=== PATIENT | male | born 1955 | race Caucasian/White ===

== ENCOUNTER 2019-03-19 11:30 | Observation (INO) | payer BC ==
[2019-03-19] MEDS ORDERED: DEXAMETHASONE 10 MG/ML VIAL ONE (12:35)
[2019-03-19] MEDS ORDERED: KETOROLAC 30 MG/ML INJ ONE (12:36)
[2019-03-19] MEDS ORDERED: MORPHINE 4 MG/ML SYR ONE (12:36)
[2019-03-19] MEDS ORDERED: DIAZEPAM 5 MG TABLET ONE (12:36)
[2019-03-19] MEDS ORDERED: ONDANSETRON 4 MG/2 ML VIAL ONE (12:37)
[2019-03-19 12:45] LABS: Protime INR 1.22
[2019-03-19 12:46] LABS: Absolute Lymphocytes (CBC) 0.8 K/uL (0.7-4.9); Absolute Monocytes 0.9 K/uL (0.1-1.3); Eosinophils % 1.7 % (0-4.4); Hematocrit 43.7 % (39.6-49.0); Lymphocytes % 6.7 % (15.3-44.8); Monocytes % 7.1 % (3.3-12.3); RBC Red Blood Cell Count 4.93 M/uL (4.33-5.43)
--- NOTE | 2019-03-19 12:47 | RAD REPORT ---
EXAM DESCRIPTION: CT - Spine Lumbar Wo Con - 03/19/2019 12:29 pm CLINICAL HISTORY: Back pain COMPARISON: None. TECHNIQUE: Thin section axial imaging of the lumbar spine was performed. Sagittal and coronal recon struction images were generated and reviewed. All CT scans are performed using dose optimization technique as appropriate and may include automated exposure control or mA/KV adjustment according to patient size. FINDINGS: No acute compression fracture changes seen. There is slight retrolisthesis of L3 relative to L4. No other alignment abnormality seen. Patient has very advanced endplate degenerative changes p rojecting from the anterior and lateral margins of the lumbar vertebrae. There is posterior endplate spurring from the inferior endplate L3. No paraspinal soft tissue mass. L3-4, L4-5 and L5-S1 disc space narrowing present with advanced degenerative disc disease. There are very advanced degenerative changes involving the endplates at the L3-4 disc level. No paraspinal mass component. Sclerotic changes are present in the L3 and L4 bodies near the endplates of the L3-4 disc space. Prominent lower lumbar facet degenerative changes are present. No pars defects. Central canal detail is inherently limited. Details further limited due to large body habitus. ET 10- T12 vertebrae are also imaged on this study. There is slight wedging of the T11 body without evidence for an acute fracture component. Central spinal stenosis is evident at L3-4 from the degenerative disc and endplate changes along with facet degenerative change. No accurate assessment can be made for disc herniation or significant dis c bulge. Aortoiliac calcifications are present without aneurysm. IMPRESSION: Advanced degenerative changes are present spanning L3-S1 the disc levels. Acute compression fracture is not suspected. Advanced endplate degenerative change present at the L3-4 disc level. Discitis/osteomyelitis cannot b e excluded at this level would need correlation clinical findings, history and lab studies. Prominent , active degenerative change is favored over discitis/osteomyelitis. Central canal cannot be assessed for disc herniation for disc bulge due to inherent CT limitations in the central canal along with limitations due to large body habitus.
[2019-03-19 12:48] LABS: ALT/SGPT 12 U/L (12-78); AST/SGOT 13 U/L (15-37); Albumin 2.9 g/dL (3.4-5.0); Alkaline Phosphatase 104 U/L (45-117); BUN Blood Urea Nitrogen 16 mg/dL (7-18); Bicarbonate 28 mmol/L (21-32); Bilirubin Direct 0.1 mg/dL (0-0.2); Bilirubin Total 0.5 mg/dL (0.2-1.0); Glucose Level 121 mg/dL (74-106); Magnesium 2.1 mg/dL (1.8-2.4); NT PRO-BNP 1291 pg/mL (<125); Potassium 3.8 mmol/L (3.5-5.1); Protein, Total 7.2 g/dL (6.4-8.2); Sodium Level 141 mmol/L (136-145); Troponin (Emerg Dept Use Only) < 0.02 ng/mL (0.0-0.045)
--- NOTE | 2019-03-19 13:22 | RAD REPORT ---
EXAM DESCRIPTION: RAD - Chest Single View - 03/19/2019 1:10 pm CLINICAL HISTORY: COUGH Chest pain. COMPARISON: No comparisons FINDINGS: Portable technique limits examination quality. The lungs are mildly emphysematous but clear. The heart is moderately enlarged in size. No displaced fractures.
--- NOTE | 2019-03-19 13:28 | ER ---
Nurse's Notes [facility] Name: Leo Griffin Age: 63 yrs Sex: Male : 1955 Arrival Date: 03/19/2019 Time: 11:32 Bed 3 Private MD: Diagnosis: Sciatica, right side;Low back pain;Obesity, unspecified;Atrial fibrillation and flutter-RVR Presentation: 03/19 11:40 Presenting complaint: EMS states: RLE CHRONIC PAIN. Transition of care: patient was not bp received from another setting of care. Onset of symptoms is unknown. Risk Assessment: Do you want to hurt yourself or someone else? Patient reports no desire to harm self or others. Initial Sepsis Screen: Does the patient meet any 2 criteria? No. Patient's initial sepsis screen is negative. Does the patient have a suspected source of infection? No. Patient's initial sepsis screen is negative. Care prior to arrival: Medication(s) given: FENTANYL 100MCG. 11:40 Method Of Arrival: EMS: [facility], [place] bp 11:40 Acuity: GISELA 3 bp Triage Assessment: 11:42 General: Appears in no apparent distress. uncomfortable, obese, Behavior is bp cooperative, appropriate for age, anxious. Pain: Complains of pain in right leg. EENT: No deficits noted. Neuro: Level of Consciousness is awake, alert, obeys commands, Oriented to person, place, time, situation, Appropriate for age. Cardiovascular: No deficits noted. Respiratory: Airway is patent Respiratory effort is even, unlabored, Respiratory pattern is regular, symmetrical. GI: No signs and/or symptoms were reported involving the gastrointestinal system. : No signs and/or symptoms were reported regarding the genitourinary system. Derm: No deficits noted. Musculoskeletal: Circulation, motion, and sensation intact. Range of motion: limited in right hip and right knee. Historical: - Allergies: 11:42 No Known Allergies; bp - Home Meds: 11:42 carvedilol oral oral [Active]; bp - PMHx: 11:42 Hypertension; bp - Immunization history:: Adult Immunizations unknown. - Social history:: Smoking status: Patient uses tobacco products, unknown amount. - Ebola Screening: : No symptoms or risks identified at this time. - Family history:: not pertinent. Screenin:45 Abuse screen: Denies threats or abuse. Denies injuries from another. Nutritional bp screening: No deficits noted. Tuberculosis screening: No symptoms or risk factors identified. Fall Risk None identified. Assessment: 11:45 General: Appears in no apparent distress. uncomfortable, obese, unkempt, Behavior is bp cooperative, appropriate for age, anxious. Pain: Complains of pain in right leg. Neuro: Level of Consciousness is awake, alert, obeys commands, Oriented to person, place, time, situation, Appropriate for age. Cardiovascular: No deficits noted. Respiratory: Airway is patent Respiratory effort is even, unlabored, Respiratory pattern is regular, symmetrical. GI: No signs and/or symptoms were reported involving the gastrointestinal system. : No signs and/or symptoms were reported regarding the genitourinary system. EENT: No deficits noted. Derm: No deficits noted. Musculoskeletal: Circulation, motion, and sensation intact. Range of motion: limited in right hip and right knee. 12:30 Reassessment: PT RETURNED FROM RADIOLOGY. bp 13:30 Reassessment: PT TO MRI. bp 14:30 Reassessment: PT RETURNED FROM MRI. bp 15:04 Reassessment: U/S AT B/S FOR ECHO. bp Vital Signs: 11:42 BP 140 / 74; Pulse 124; Resp 20; Temp 98; Pulse Ox 96% ; Weight 167.83 kg; Height 6 ft. bp (182.88 cm); 13:05 BP 183 / 133; Pulse 123; Resp 18; Pulse Ox 95% ; bp 13:30 BP 186 / 131; Pulse 123; Resp 20; Pulse Ox 93% on R/A; bp 14:30 BP 147 / 100; Pulse 123; Resp 18; Pulse Ox 92% ; bp 14:45 BP 136 / 98; Pulse 97; Resp 16; Pulse Ox 95% ; bp 15:30 BP 139 / 92; Pulse 91; Resp 28; Pulse Ox 96% on R/A; bp 11:42 Body Mass Index 50.18 (167.83 kg, 182.88 cm) bp ED Course: 11:32 Patient arrived in ED. aa5 11:34 Remberto Pruitt, GRACE is Primary Nurse. bp 11:36 Zachariah Craig MD is Attending Physician. awilda 11:41 Triage completed. bp 11:42 Arm band placed on. bp 11:45 Patient has correct armband on for positive identification. Bed in low position. Call bp light in reach. Side rails up X2. Adult w/ patient. 12:03 EKG done, by biomedical engineering technologist. reviewed by Zachariah Craig MD. dt2 12:30 CT Lumbar Spine Wo Con In Process Unspecified. EDMS 12:30 Inserted saline lock: 20 gauge in right wrist, using aseptic technique. Blood collected.bp 13:11 XRAY Chest (1 view) In Process Unspecified. EDMS 13:25 Chris Putnam MD is Hospitalizing Provider. awilda 14:59 EKG done, by biomedical engineering technologist. reviewed by Zachariah Craig MD Incentive spirometer education at1 Repeat EKG. 15:39 No provider procedures requiring assistance completed. Patient admitted, IV remains in bp place. Administered Medications: 12:30 Drug: morphine 4 mg Route: IVP; Site: right wrist; bp 15:01 Follow up: Response: Pain is decreased bp 12:30 Drug: Zofran 4 mg Route: IVP; Site: right wrist; bp 15:02 Follow up: Response: No adverse reaction bp 12:30 Drug: Decadron - Dexamethasone 10 mg Route: IVP; Site: right wrist; bp 15:02 Follow up: Response: No adverse reaction bp 12:30 Drug: TORadol 30 mg Route: IVP; Site: right wrist; bp 15:03 Follow up: Response: Pain is decreased bp 12:30 Drug: Valium 5 mg Route: PO; bp 15:03 Follow up: Response: No adverse reaction bp 14:30 Drug: Lopressor (metoprolol TARTRATE) 50 mg Route: PO; bp 14:51 Follow up: Response: No adverse reaction bp 14:30 Drug: Pepcid 20 mg Route: IVP; Site: right wrist; bp 14:52 Follow up: Response: No adverse reaction bp 14:30 Drug: Lovenox 100 mg Route: Sub-Q; Site: right lower abdomen; bp 14:51 Follow up: Response: No adverse reaction bp 14:45 Drug: Lopressor 5 mg Route: IVP; Site: right wrist; bp 15:35 Drug: Lopressor 5 mg Route: IVP; Site: right wrist; bp Outcome: 13:27 Decision to Hospitalize by Provider. awilda 15:45 Admitted to Tele accompanied by tech, family with patient, via stretcher, room 428, bp with chart, Report called to ELMA EDWARDS 15:45 Condition: stable 15:45 Instructed on the need for admit. 16:09 Patient left the ED. bp Signatures: Dispatcher [employer] Zachariah Iraheta MD MD cha Calderon, Audri, RN RN aa5 Mehreen Bowman, electronic publishing specialist EKG Tat1 Remberto Pruitt RN RN Haydee Bernabe dt2
--- NOTE | 2019-03-19 13:28 | EDPHYS ---
Physician Documentation [facility] Name: Leo Griffin Age: 63 yrs Sex: Male : 1955 Arrival Date: 03/19/2019 Time: 11:32 Bed 3 Private MD: ED Physician Zachariah Craig HPI: 03/19 11:55 This 63 yrs old Male presents to ER via EMS with complaints of Leg Pain. awilda 11:55 The patient presents with decreased range of motion, pain, that is acute. The awilda complaints affect the lateral aspect of right thigh, lateral aspect of right calf, right hamstring, right calf, medial aspect of right thigh, medial aspect of right calf, right quadriceps and right choi. Context: The problem was sustained at an unknown site. Onset: The symptoms/episode began/occurred yesterday. Modifying factors: The symptoms are alleviated by remaining still, the symptoms are aggravated by movement. Severity of symptoms: At their worst the symptoms were severe, in the emergency department the symptoms have improved, moderately. The patient has experienced similar episodes in the past. Historical: - Allergies: 11:42 No Known Allergies; bp - Home Meds: 11:42 carvedilol oral oral [Active]; bp - PMHx: 11:42 Hypertension; bp - Immunization history:: Adult Immunizations unknown. - Social history:: Smoking status: Patient uses tobacco products, unknown amount. - Ebola Screening: : No symptoms or risks identified at this time. - Family history:: not pertinent. ROS: 11:55 Constitutional: Negative for fever, chills, and weight loss, Eyes: Negative for injury, awilda pain, redness, and discharge, ENT: Negative for injury, pain, and discharge, Neck: Negative for injury, pain, and swelling, Cardiovascular: Negative for chest pain, palpitations, and edema, Respiratory: Negative for shortness of breath, cough, wheezing, and pleuritic chest pain, Abdomen/GI: Negative for abdominal pain, nausea, vomiting, diarrhea, and constipation, : Negative for injury, bleeding, discharge, and swelling, MS/Extremity: Negative for injury and deformity, Skin: Negative for injury, rash, and discoloration, Neuro: Negative for headache, weakness, numbness, tingling, and seizure, Psych: Negative for depression, anxiety, suicide ideation, homicidal ideation, and hallucinations, Allergy/Immunology: Negative for hives, rash, and allergies, Endocrine: Negative for neck swelling, polydipsia, polyuria, polyphagia, and marked weight changes, Hematologic/Lymphatic: Negative for swollen nodes, abnormal bleeding, and unusual bruising. 11:55 Back: Positive for decreased range of motion, pain with movement, radiated pain. Exam: 11:55 Constitutional: This is a well developed, well nourished patient who is awake, alert, awilda and in no acute distress. Head/Face: Normocephalic, atraumatic. Eyes: Pupils equal round and reactive to light, extra-ocular motions intact. Lids and lashes normal. Conjunctiva and sclera are non-icteric and not injected. Cornea within normal limits. Periorbital areas with no swelling, redness, or edema. ENT: Nares patent. No nasal discharge, no septal abnormalities noted. Tympanic membranes are normal and external auditory canals are clear. Oropharynx with no redness, swelling, or masses, exudates, or evidence of obstruction, uvula midline. Mucous membranes moist. Neck: Trachea midline, no thyromegaly or masses palpated, and no cervical lymphadenopathy. Supple, full range of motion without nuchal rigidity, or vertebral point tenderness. No Meningismus. Chest/axilla: Normal chest wall appearance and motion. Nontender with no deformity. No lesions are appreciated. Cardiovascular: Regular rate and rhythm with a normal S1 and S2. No gallops, murmurs, or rubs. Normal PMI, no JVD. No pulse deficits. Respiratory: Lungs have equal breath sounds bilaterally, clear to auscultation and percussion. No rales, rhonchi or wheezes noted. No increased work of breathing, no retractions or nasal flaring. Abdomen/GI: Soft, non-tender, with normal bowel sounds. No distension or tympany. No guarding or rebound. No evidence of tenderness throughout. Male : Normal genitalia with no discharge or lesions. Skin: Warm, dry with normal turgor. Normal color with no rashes, no lesions, and no evidence of cellulitis. Neuro: Awake and alert, GCS 15, oriented to person, place, time, and situation. Cranial nerves II-XII grossly intact. Motor strength 5/5 in all extremities. Sensory grossly intact. Cerebellar exam normal. Normal gait. Psych: Awake, alert, with orientation to person, place and time. Behavior, mood, and affect are within normal limits. 11:55 Back: ROM is painful, normal spinal alignment noted, CVA tenderness, is absent, vertebral tenderness, is not appreciated, muscle spasm, is appreciated in the left low back, left mid back, right mid back and right low back. Vital Signs: 11:42 BP 140 / 74; Pulse 124; Resp 20; Temp 98; Pulse Ox 96% ; Weight 167.83 kg; Height 6 ft. bp (182.88 cm); 13:05 BP 183 / 133; Pulse 123; Resp 18; Pulse Ox 95% ; bp 13:30 BP 186 / 131; Pulse 123; Resp 20; Pulse Ox 93% on R/A; bp 14:30 BP 147 / 100; Pulse 123; Resp 18; Pulse Ox 92% ; bp 14:45 BP 136 / 98; Pulse 97; Resp 16; Pulse Ox 95% ; bp 15:30 BP 139 / 92; Pulse 91; Resp 28; Pulse Ox 96% on R/A; bp 11:42 Body Mass Index 50.18 (167.83 kg, 182.88 cm) bp MDM: 11:36 Patient medically screened. [facility] 11:57 Data reviewed: vital signs, nurses notes, lab test result(s), EKG, radiologic studies, [facility] CT scan, plain films. 03/19 11:54 Order name: Basic Metabolic Panel; Complete Time: 13:21 [facility] 03/19 11:54 Order name: CBC with Diff; Complete Time: 13:21 [facility] 03/19 11:54 Order name: LFT's; Complete Time: 13:21 [facility] 03/19 11:54 Order name: Magnesium; Complete Time: 13:21 [facility] 03/19 11:54 Order name: NT PRO-BNP; Complete Time: 13:21 [facility] 03/19 11:54 Order name: PT-INR; Complete Time: 13:21 [facility] 03/19 11:54 Order name: Troponin (emerg Dept Use Only); Complete Time: 13:21 [facility] 03/19 11:54 Order name: XRAY Chest (1 view) [facility] 03/19 11:54 Order name: CT Lumbar Spine Wo Con; Complete Time: 13:21 [facility] 03/19 11:54 Order name: Urine Culture [facility] 03/19 12:08 Order name: TSH; Complete Time: 13:21 03/19 13:24 Order name: Echo w/ Doppler [facility] 03/19 13:25 Order name: MRI Lumbar Spine wo Con bd 03/19 14:48 Order name: MRI [facility] 03/19 11:54 Order name: EKG; Complete Time: 11:56 [facility] 03/19 11:54 Order name: Cardiac monitoring; Complete Time: 12:18 [facility] 03/19 11:54 Order name: EKG - Nurse/Tech; Complete Time: 12:18 [facility] 03/19 11:54 Order name: IV Saline Lock; Complete Time: 12:18 [facility] 03/19 11:54 Order name: Labs collected and sent; Complete Time: 12:18 [facility] 03/19 13:24 Order name: EKG; Complete Time: 13:25 [facility] 03/19 13:32 Order name: CONS Physician Consult [facility] 03/19 11:54 Order name: O2 Per Protocol; Complete Time: 12:18 [facility] 03/19 11:54 Order name: O2 Sat Monitoring; Complete Time: 11:57 [facility] 03/19 13:24 Order name: EKG - Nurse/Tech; Complete Time: 14:48 [facility] Administered Medications: 12:30 Drug: morphine 4 mg Route: IVP; Site: right wrist; bp 15:01 Follow up: Response: Pain is decreased bp 12:30 Drug: Zofran 4 mg Route: IVP; Site: right wrist; bp 15:02 Follow up: Response: No adverse reaction bp 12:30 Drug: Decadron - Dexamethasone 10 mg Route: IVP; Site: right wrist; bp 15:02 Follow up: Response: No adverse reaction bp 12:30 Drug: TORadol 30 mg Route: IVP; Site: right wrist; bp 15:03 Follow up: Response: Pain is decreased bp 12:30 Drug: Valium 5 mg Route: PO; bp 15:03 Follow up: Response: No adverse reaction bp 14:30 Drug: Lopressor (metoprolol TARTRATE) 50 mg Route: PO; bp 14:51 Follow up: Response: No adverse reaction bp 14:30 Drug: Pepcid 20 mg Route: IVP; Site: right wrist; bp 14:52 Follow up: Response: No adverse reaction bp 14:30 Drug: Lovenox 100 mg Route: Sub-Q; Site: right lower abdomen; bp 14:51 Follow up: Response: No adverse reaction bp 14:45 Drug: Lopressor 5 mg Route: IVP; Site: right wrist; bp 15:35 Drug: Lopressor 5 mg Route: IVP; Site: right wrist; bp Disposition: 03/19/19 13:27 Hospitalization ordered by Chris Putnam for Inpatient Admission. Preliminary diagnosis are Sciatica, right side, Low back pain, Obesity, unspecified, Atrial fibrillation and flutter - RVR. - Bed requested for Telemetry/MedSurg (Inpatient). - Status is Inpatient Admission. bp - Condition is Stable. - Problem is new. - Symptoms have improved. UTI on Admission? No Signatures: Dispatcher [employer] EDQiana Arreola RN RN Zachariah Biswas MD MD cha Peltier, Brian, RN RN bp Corrections: (The following items were deleted from the chart) 15:03 13:27 Hospitalization Ordered by Chris Putnam MD for Inpatient Admission. Preliminary diagnosis is Sciatica, right side; Low back pain; Obesity, unspecified; Atrial fibrillation and flutter - RVR. Bed requested for Telemetry/MedSurg (Inpatient). Status is Inpatient Admission. Condition is Stable. Problem is new. Symptoms have improved. UTI on Admission? No. awilda 16:09 15:03 03/19/2019 13:27 Hospitalization Ordered by Chris Putnam MD for Inpatient bp Admission. Preliminary diagnosis is Sciatica, right side; Low back pain; Obesity, unspecified; Atrial fibrillation and flutter - RVR. Bed requested for Telemetry/MedSurg (Inpatient). Status is Inpatient Admission. Condition is Stable. Problem is new. Symptoms have improved. UTI on Admission? No. kl
[2019-03-19] MEDS ORDERED: ENOXAPARIN 100 MG/ML SYR SQ ONE (14:04)
[2019-03-19] MEDS ORDERED: METOPROLOL TAR 50 MG TAB ONE (14:04)
[2019-03-19] MEDS ORDERED: FAMOTIDINE 20 MG/2 ML VIAL IV ONE (14:05)
[2019-03-19] MEDS ORDERED: METOPROLOL TARTRATE 5 MG/5 ML INJ IV ONE (14:05)
--- NOTE | 2019-03-19 14:48 | RAD REPORT ---
EXAM DESCRIPTION: MRI - Lumbar Spine Wo Antonio- 03/19/2019 2:36 pm CLINICAL HISTORY: PAIN Back pain, radiculopathy. COMPARISON: No comparisons FINDINGS: Vertebral body heights are within normal limits. No aggressive marrow pattern is observed. No fracture is suspected. The conus medullaris terminates at a normal level. No thickening of the cauda equina or clumping of n erve roots seen. L1-2 level: No significant findings. L2-3 level: Minimal posterior disc bulge mild facet and ligamentum flavum hypertrophy. L3-4 level: Asymmetric posterior disc bulge to the right resulting in mild central canal narrowing. M ild facet and ligamentum flavum hypertrophy is seen. Mild to moderate narrowing of both exit foramina is present. L4-5 level: Large central disc herniation is present measuring 10 mm and resulting in significant salvador tral canal stenosis. Mild facet and ligamentum flavum hypertrophy is present. Moderate narrowing of t he left exit foramen is seen. L5-S1 level: No significant findings. IMPRESSION: Large central disc herniation at L4-5 resulting in severe central canal stenosis.
--- NOTE | 2019-03-19 15:14 | EKG ---
Test Date: 2019-03-19 Test Time: 14:59:03 Major Assembler: MARLIN MEASUREMENT RESULTS: Intervals: Rate: 98 WA: QRSD: 110 QT: 364 QTc: 464 [place]: P: WA: QRS: -9 T: 77 INTERPRETIVE STATEMENTS: Atrial flutter with variable AV block Abnormal ECG Compared to ECG 03/19/2019 12:03:53 no significant change from previous ECG Electronically Signed On 03-19-19 15:14:33 CDT by Tommy Norman
--- NOTE | 2019-03-19 15:16 | EKG ---
Test Date: 2019-03-19 Test Time: 12:03:53 Wood Treating Inspector: ZOHAIB MEASUREMENT RESULTS: Intervals: Rate: 110 MN: QRSD: 90 QT: 328 QTc: 443 [place]: P: MN: QRS: -5 T: 41 INTERPRETIVE STATEMENTS: Atrial flutter with variable AV block Nonspecific T wave abnormality Abnormal ECG No previous ECG available for comparison Electronically Signed On 03-19-19 15:15:32 CDT by Tommy Norman
--- NOTE | 2019-03-19 16:08 | ECHO ---
HEIGHT: ft in WEIGHT: lb oz DATE OF STUDY: 03/19/[address]: Zachariah Craig MD 2-DIMENSIONAL: YES M.MODE: YES DOPPLER: YES COLOR FLOW: YES TDS: YES PORTABLE: YES DEFINITY: BUBBLE STUDY: DIAGNOSIS: ATRIAL FIBRILLATION CARDIAC HISTORY: CATHERIZATION: NO SURGERY: NO PROSTHETIC VALVE: NO PACEMAKER: NO MEASUREMENTS (cm) DIASTOLIC (NORMALS) SYSTOLIC (NORMALS) IVSd 0.9 (0.6-1.2) LA Diam 3.2 (1.9-4.0) LVEF 53% LVIDd 3.9 (3.5-5.7) LVIDs 2.8 (2.0-3.5) %FS 27% LVPWd 1.2 (0.6-1.2) Ao Diam 3.3 (2.0-3.7) 2 DIMENSIONAL ASSESSMENT: RIGHT ATRIUM: NORMAL LEFT ATRIUM: NORMAL RIGHT VENTRICLE: NORMAL LEFT VENTRICLE: NORMAL TRICUSPID VALVE: NORMAL MITRAL VALVE: NORMAL PULMONIC VALVE: NORMAL AORTIC VALVE: NORMAL PERICARDIAL EFFUSION: NONE AORTIC ROOT: NORMAL LEFT VENTRICULAR WALL MOTION: NORMAL DOPPLER/COLOR FLOW: MILD MITRAL REGURGITATION AND TRICUSPID REGURGITATION. NORMAL RIGHT VENTRICULAR SYSTOLIC PRESSURE. COMMENTS: NORMAL LEFT VENRICULAR EJECTION FRACTION. ATRIAL FLUTTER WITH VARIABLE AV BLOCK. MILD MITRAL REGURGITATION AND TRICUSPID REGURGITATION. TECHNOLOGIST: DONNY GUERRERO
[2019-03-19] MEDS ORDERED: ONDANSETRON 4 MG/2 ML VIAL IV PRN (16:54)
[2019-03-19] MEDS ORDERED: ACETAMINOPHEN 325 MG TABLET PO PRN (16:54)
[2019-03-19] MEDS: MORPHINE 4 MG/ML SYR IV PRN (17:29)
[2019-03-19 20:47] LABS: Urine Appearance TURBID; Urine Bilirubin NEGATIVE (NEG); Urine Blood 2+ (NEG); Urine Color YELLOW; Urine Glucose NEGATIVE (NEG); Urine Protein 2+ (NEG); Urine pH 7.5 (5.0-7.0)
--- NOTE | 2019-03-19 20:53 | CON ---
Mr. Griffin is 63. He came to the hospital because his right hip hurts a lot. Apparently, it has bee n very painful for him since November of this year. He does not recall any particular injury, but he is unable to work. I am not consulted of course for the hip, but because his EKG shows atrial flutte r with variable AV block. About 5 years ago, the patient had a TIA. He was at [facility]. At that time, no doubt he had EKGs. He was not told he had any arrhythmia problem, then was not put on any blood thinners. There were no procedures done. All of the testing he did apparently was normal . There were no interventions. He does not use tobacco. Alcohol use, moderate. No illegal drugs. His home medications have been not listed. No allergies are reported. Physical Examination: General: He is morbidly obese. HEENT: Normal. Lungs: Clear. Heart: Irregularly irregular. Heart rate in the 90s, otherwise normal. Abdomen: Soft. Extremities: Mild edema. Distal pulses palpable, within normal limits. An echocardiogram has been done. It shows his ejection fraction is normal. There is mild mitral reg urgitation and tricuspid regurgitation. No evidence of pulmonary hypertension. His EKG shows atrial flutter. Recommendations: My recommendation is that we give him medicines to control his rate, anticoagulate him. We can consider a cardioversion after 3 weeks of anticoagulation. His hip pain is most likely due to the lumbar spinal stenosis that is seen on MRI. There is a large central disk herniation at t he L4-L5 level, so he probably is a patient who will be getting back surgery at some point. It shoul d be delayed until his atrial fibrillation is under better control. If we were able to do a transeso phageal echo, we could see if there is an atrial thrombus, and if not, cardioversion sooner, so in th at way a transfer to a tertiary level of care might improve things, but I suspect that just anticoagu lating him for 3 weeks is the best course with cardioverting him then. DANNY/ALBERTO Voice ID: [id number] Report ID: [id number]
[2019-03-19] MEDS ORDERED: METOPROLOL TAR 50 MG TAB PO SCH (21:00)
[2019-03-19] MEDS ORDERED: FAMOTIDINE 20 MG/2 ML VIAL IV SCH (21:00)
[2019-03-19 21:01] LABS: Urine Bacteria >50 /HPF (NONE SEEN); Urine RBC 20-50 /HPF (NONE SEEN)
[2019-03-19 21:02] LABS: Urine Culture Reflex Order NOT NEEDED; Urine Mucus 3+ /HPF (NONE SEEN)
--- NOTE | 2019-03-19 21:32 | P.HP ---
Certification for Inpatient Patient admitted to: Observation With expected LOS: <2 Midnights Practitioner: I am a practitioner with admitting privileges, knowledge of patient current condition, hospital course, and medical plan of care. Services: Services provided to patient in accordance with Admission requirements found in Title 42 Section 412.3 of the Code of Federal Regulations Patient History Date of Service: 03/19/19 Reason for admission: RIGHT LEG PARALYSIS History of Present Illness: MR. CORREA IS MORBIDLY OBESE GENTLEMAN WHO LIVES ALONE AND EATS FAST FOOD DAILY AFTER WORK. HE HAS GAINED ABOUT 80 LBS OF WEIGHT. HE CAME TO OFFICE WITH SEVERE LOWER BACK PAIN AND RADIATION TO LEG. I GAVE HIM STEROID INJECTION AND MRI ORDER . HE WAS TO DO MRI TODAY BUT COULD NOT WALK WITH LEG WEAKNESS.HIS FAMILY BROUGHT HIM TO ER. HE DOES NOT HAVE MUCH PAIN BUT IS NOT ABLE TO WALK. HIS SON AND GRANDSON ARE VISITING. Allergies No Known Allergies Allergy (Verified 03/19/19 16:54) Home Medications: Carvedilol [Coreg] 12.5 mg PO BID 03/19/19 - Past Medical/Surgical History Has patient received pneumonia vaccine in the past: No Diabetic: No -: right leg sciatica -: hypertension -: hyperlipidemia -: mini stroke - Social History Smoking Status: Current every day smoker Alcohol use: No CD- Drugs: No Caffeine use: Yes Place of Residence: Home Review of Systems 10-point ROS is otherwise unremarkable General: Weakness, As per HPI Physical Examination - Vital Signs Temperature: 96.8 F Blood Pressure: 161/100 Pulse: 100 Respirations: 16 Pulse Ox (%): 92 - Physical Exam General: Alert, Mild distress, Obese HEENT: Atraumatic, PERRLA, Mucous membr. moist/pink, EOMI, Sclerae nonicteric Neck: Supple, 2+ carotid pulse no bruit, No LAD, Without JVD or thyroid abnormality Respiratory: Clear to auscultation bilaterally, Normal air movement Cardiovascular: Regular rate/rhythm, Normal S1 S2 Gastrointestinal: Normal bowel sounds, No tenderness Musculoskeletal: No tenderness Integumentary: No rashes Neurological: Abnormal gait (NOT ABLE TO GET UP ON BOTH FEET.), Abnormal strength (RIGHT LOWER LIMB MONOPARESIS. 3/5) Lymphatics: No axilla or inguinal lymphadenopathy - Studies Laboratory Data (last 24 hrs) 03/19/19 12:15: PT 14.3 H, INR 1.22 03/19/19 12:15: WBC 12.0 H, Hgb 14.4, Hct 43.7, Plt Count 270 03/19/19 12:15: Sodium 141, Potassium 3.8, BUN 16, Creatinine 0.81, Glucose 121 H, Magnesium 2.1, Total Bilirubin 0.5, AST 13 L, ALT 12, Alkaline Phosphatase 104 Assessment and Plan - Problems (Diagnosis) (1) Lumbar spinal stenosis Current Visit: Yes Status: Chronic Plan: AND RT LOWER LIMB MONOPARESIS. SEVERE L4-5 STENOSIS FROM DISK AND DJD. I EXPLAINED THAT WE HAVE NO NEUROSURGEON HE NEEDS TO GO TO ONE OUTPATIENT BUT IS NOT ABLE TO WALK AND THERE IS NOT MUCH FAMILY LOCALLY. Qualifiers: Neurogenic claudication status: without neurogenic claudication Qualified Code(s): M48.061 - Spinal stenosis, lumbar region without neurogenic claudication (2) Atrial flutter Current Visit: Yes Status: Acute Plan: METOPROLOL AND LOVENOX. DR. TAYLOR CALLED IN. Qualifiers: Atrial flutter type: typical Qualified Code(s): I48.3 - Typical atrial flutter (3) HTN (hypertension) Current Visit: Yes Status: Chronic Plan: HE HAS QUIT TAKING MEDS. HE IS BACK ON METORPOLOL AND LOSARTAN. Qualifiers: Hypertension type: essential hypertension Qualified Code(s): I10 - Essential (primary) hypertension - Advance Directives Does patient have a Living Will: No Does patient have a Durable POA for Healthcare: No
[2019-03-20] MEDS: DEXAMETHASONE 10 MG/ML VIAL IV SCH ×4 (00:11→17:04)
[2019-03-20] MEDS: MORPHINE 4 MG/ML SYR IV PRN ×4 (02:15→22:27)
[2019-03-20 04:33] LABS: Absolute Lymphocytes (CBC) 0.5 K/uL (0.7-4.9); Absolute Monocytes 0.2 K/uL (0.1-1.3); Absolute Neutrophil 10.5 K/uL (1.8-8.0); Basophils % 0.9 % (0-1.3); Hematocrit 44.7 % (39.6-49.0); Lymphocytes % 4.2 % (15.3-44.8); MPV 9.4 fL (7.6-11.3); Monocytes % 1.9 % (3.3-12.3)
[2019-03-20 04:41] LABS: BUN Blood Urea Nitrogen 19 mg/dL (7-18); Bicarbonate 28 mmol/L (21-32); Glucose Level 107 mg/dL (74-106); Potassium 4.5 mmol/L (3.5-5.1); Sodium Level 140 mmol/L (136-145)
[2019-03-20 05:04] LABS: Blood Morphology Comment NOT SEEN (NOT SEEN); Platelet Estimate ADEQ
[2019-03-20] MEDS: ENOXAPARIN 100 MG/ML SYR SQ SCH ×2 (05:23→17:04)
[2019-03-20] MEDS: METOPROLOL TAR 50 MG TAB PO SCH ×2 (05:23→17:04)
--- NOTE | 2019-03-20 07:07 | RAD REPORT ---
EXAM DESCRIPTION: RAD - Chest Single View - 03/20/2019 6:45 am CLINICAL HISTORY: Chest pain COMPARISON: March 19 TECHNIQUE: AP portable chest image was obtained 0638 hours . FINDINGS: Lungs are clear. Cardiomediastinal silhouette is enlarged due to rotation, large body habi tus and portable technique. Motion degradation is present. No measurable pleural effusion and no pneu mothorax. No acute bony abnormality seen. No acute aortic findings suspected. IMPRESSION: No acute cardiopulmonary process or significant interval change suspected. Cardiomediastinal silhouette assessment is very limited due to above detailed limitations. When diana able by the patient, standard two view chest examination would be helpful.
[2019-03-20] MEDS ORDERED: ASPIRIN EC 81 MG TAB PO SCH (09:00)
[2019-03-20] MEDS ORDERED: LOSARTAN POTASSIUM 50 MG TABLET PO SCH (09:00)
[2019-03-20] MEDS: FAMOTIDINE 20 MG/2 ML VIAL IV SCH ×2 (09:08→20:05)
[2019-03-20] MEDS: cloNIDine HCl 0.1 MG TAB PO PRN ×2 (12:54→15:06)
--- NOTE | 2019-03-20 18:25 | EKG ---
Test Date: 2019-03-20 Test Time: 09:16:44 Supervisor Cabinetmaker: MARLIN MEASUREMENT RESULTS: Intervals: Rate: 104 DC: QRSD: 106 QT: 322 QTc: 423 [place]: P: 262 DC: QRS: -6 T: 86 INTERPRETIVE STATEMENTS: Atrial flutter with variable AV block Nonspecific T wave abnormality Abnormal ECG Compared to ECG 03/19/2019 14:59:03 T-wave abnormality now present Electronically Signed On 03-20-19 18:23:39 CDT by Tino Pratt
--- NOTE | 2019-03-20 18:45 | P.PN ---
Subjective Date of Service: 03/20/19 Chief Complaint: RIGHT LEG PARALYSIS Subjective: No new changes R LEG WEAK, NO CHEST PAIN, NO DYSPNEA. Review of Systems 10-point ROS is otherwise unremarkable Neurological: Weakness, Other (NOT ABLE TO BEAR ANY WEIGHT HE FALLS. ) Physical Examination - Vital Signs Temperature: 98.6 F Blood Pressure: 160/103 Pulse: 105 Respirations: 20 Pulse Ox (%): 94 - Physical Exam General: Alert, Moderate distress, Obese HEENT: Atraumatic, PERRLA, EOMI Neck: Supple, JVD not distended Respiratory: Clear to auscultation bilaterally, Normal air movement Cardiovascular: Regular rate/rhythm, Normal S1 S2 Gastrointestinal: Normal bowel sounds, No tenderness Musculoskeletal: No tenderness Integumentary: No rashes Neurological: Normal speech, Normal tone, Normal affect, Abnormal strength (R LL 3/5 LEFT LL 4/5 WEAKNESS.) Lymphatics: No axilla or inguinal lymphadenopathy - Studies Medications List Reviewed: Yes Assessment And Plan - Current Problems (Diagnosis) (1) Lumbar spinal stenosis Current Visit: Yes Status: Chronic Plan: AND RT LOWER LIMB MONOPARESIS. SEVERE L4-5 STENOSIS FROM DISK AND DJD. I EXPLAINED THAT WE HAVE NO NEUROSURGEON HE NEEDS TO GO TO ONE OUTPATIENT BUT IS NOT ABLE TO WALK AND THERE IS NOT MUCH FAMILY LOCALLY. [facility] HAS ACCEPTED. MEDICALLY CLEARED A FLUTTER IS STABLIZED AND ABHISHEK DONE TO RULE OUT VENTRICULAR CLOTS. WE HAD NO ABHISHEK FACILITY HERE. HE NEEDS [facility]. I TALKED TO [facility] DOCT[facility]. THEY HAVE ACCEPTED TRANSFER BUT THEY HAVE NO BEDS. Qualifiers: Neurogenic claudication status: without neurogenic claudication Qualified Code(s): M48.061 - Spinal stenosis, lumbar region without neurogenic claudication (2) Atrial flutter Current Visit: Yes Status: Acute Plan: METOPROLOL AND LOVENOX. DR. TAYLOR CALLED IN. Qualifiers: Atrial flutter type: typical Qualified Code(s): I48.3 - Typical atrial flutter (3) HTN (hypertension) Current Visit: Yes Status: Chronic Plan: HE HAS QUIT TAKING MEDS. HE IS BACK ON METORPOLOL AND LOSARTAN. Qualifiers: Hypertension type: essential hypertension Qualified Code(s): I10 - Essential (primary) hypertension
[2019-03-20] MEDS ORDERED: METOPROLOL TAR 50 MG TAB PO SCH (19:00)
--- NOTE | 2019-03-20 19:44 | PN ---
Date of Progress Note: 03/20/2019 Mr. Griffin is 63, was admitted on 03/19/[address] Putnam. He was seen by Dr. Norman yesterday for a trial flutter. Echocardiogram was normal. Plan is for beta alona to control the rhythm, anticoagul ants and cardioversion in the next 3 weeks. Today, his main complaint is hip pain, shortness of ric th. He is morbidly obese. He remained in atrial fibrillation at a rate of about 110-130. I will di scuss the case further with Dr. Putnam. LAWSON/ALBERTO Voice ID: [id number] Report ID: [id number]
[2019-03-20] MEDS ORDERED: APIXABAN 5 MG TABLET PO SCH (21:00)
--- NOTE | 2019-03-21 21:42 | P.DS ---
Admission Date: 03/19/19 Discharge Date: 03/21/19 Disposition: TRANSFER TO [facility] Discharge Condition: FAIR Reason for Admission: RIGHT LEG PARALYSIS - Problems (1) Lumbar spinal stenosis Status: Chronic Qualifiers: Neurogenic claudication status: without neurogenic claudication Qualified Code(s): M48.061 - Spinal stenosis, lumbar region without neurogenic claudication (2) Atrial flutter Status: Acute Qualifiers: Atrial flutter type: typical Qualified Code(s): I48.3 - Typical atrial flutter (3) HTN (hypertension) Status: Chronic Qualifiers: Hypertension type: essential hypertension Qualified Code(s): I10 - Essential (primary) hypertension Brief History of Present Illness: MR. CORREA IS MORBIDLY OBESE GENTLEMAN WHO LIVES ALONE AND EATS FAST FOOD DAILY AFTER WORK. HE HAS GAINED ABOUT 80 LBS OF WEIGHT. HE CAME TO OFFICE WITH SEVERE LOWER BACK PAIN AND RADIATION TO LEG. I GAVE HIM STEROID INJECTION AND MRI ORDER . HE WAS TO DO MRI TODAY BUT COULD NOT WALK WITH LEG WEAKNESS.HIS FAMILY BROUGHT HIM TO ER. HE DOES NOT HAVE MUCH PAIN BUT IS NOT ABLE TO WALK. HIS SON AND GRANDSON ARE VISITING. LAST NIGHT HE WAS TAKEN T [facility] FOR SEVERE SPINAL STENOSIS AND ATRIAL FLUTTER. Vital Signs/Physical Exam: Temp Pulse Resp BP Pulse Ox 97.0 F 105 H 20 140/101 H 97 03/20/19 20:00 03/20/19 20:06 03/20/19 20:00 03/20/19 20:06 03/20/19 20:00 Laboratory Data at Discharge: WBC 11.2 K/uL (4.3-10.9) H 03/20/19 03:44 Hgb 14.7 g/dL (13.6-17.9) 03/20/19 03:44 Hct 44.7 % (39.6-49.0) 03/20/19 03:44 Plt Count 279 K/uL (152-406) 03/20/19 03:44 PT 14.3 SECONDS (9.5-12.5) H 03/19/19 12:15 INR 1.22 03/19/19 12:15 Sodium 140 mmol/L (136-145) 03/20/19 03:44 Potassium 4.5 mmol/L (3.5-5.1) 03/20/19 03:44 BUN 19 mg/dL (7-18) H 03/20/19 03:44 Creatinine 0.72 mg/dL (0.55-1.3) 03/20/19 03:44 Glucose 107 mg/dL (74-106) H 03/20/19 03:44 Magnesium 2.1 mg/dL (1.8-2.4) 03/19/19 12:15 Total Bilirubin 0.5 mg/dL (0.2-1.0) 03/19/19 12:15 AST 13 U/L (15-37) L 03/19/19 12:15 ALT 12 U/L (12-78) 03/19/19 12:15 Alkaline Phosphatase 104 U/L (45-117) 03/19/19 12:15 Troponin I < 0.02 ng/mL (0.0-0.045) 03/19/19 20:35 Home Medications: Carvedilol [Coreg] 12.5 mg PO BID 03/19/19
== END 2019-03-20 23:15 | disposition short-term general hospital (02) ==
LOC: ER 11:30 → INTOOBSV 13:29 → ERHOLD 13:29 → 4TH 15:49
PROVIDERS: ADMIT Internal Medicine; ATTEND Internal Medicine
DX: M48.061 Spinal stenosis, lumbar region without neurogenic claudication (principal); G83.11 Monoplegia of lower limb affecting right dominant side; I48.92 Unspecified atrial flutter; I10 Essential (primary) hypertension; E66.01 Morbid (severe) obesity due to excess calories; Z68.42 Body mass index [BMI] 45.0-49.9, adult; E78.5 Hyperlipidemia, unspecified; F17.210 Nicotine dependence, cigarettes, uncomplicated
CPT/HCPCS: 36415; 71045; 72131; 72148; 80048; 80076; 81001; 83735; 83880; 84443; 84484; 85025; 85610; 87077; 87086; 87088; 87186; 93005; 93306; 96372; 96374; 96375; 99285; G0378; J1100; J1650; J2405

== ENCOUNTER 2019-05-10 06:20 | Day surgery (SDC) | payer BC ==
--- NOTE | 2019-05-08 17:08 | RAD REPORT ---
EXAM DESCRIPTION: RAD - Chest Pa And Lat (2 Views) - 05/08/2019 5:03 pm CLINICAL HISTORY: preop Chest pain. COMPARISON: Chest Single View dated 03/20/2019; Chest Single View dated 03/19/2019 TECHNIQUE: PA and lateral views of the chest were obtained. FINDINGS: The lungs are hyperexpanded compatible with COPD. The heart is upper limit of normal in si ze. No fracture or aggressive bony process. IMPRESSION: COPD without acute process identified.
[2019-05-08 17:16] LABS: Absolute Lymphocytes (CBC) 1.3 K/uL (0.7-4.9); Basophils % 1.2 % (0-1.3); Eosinophils % 4.4 % (0-4.4); Hematocrit 42.9 % (39.6-49.0); Lymphocytes % 15.3 % (15.3-44.8); MPV 9.5 fL (7.6-11.3); Monocytes % 9.3 % (3.3-12.3); RBC Red Blood Cell Count 4.81 M/uL (4.33-5.43)
[2019-05-08 17:24] LABS: Protime INR 1.38
[2019-05-08 17:28] LABS: Potassium 3.9 mmol/L (3.5-5.1)
--- OUTSIDE RECORDS SUMMARY | 2019-05-10 06:24 | XMS REPORT ---
:1955 Author Organization [facility] Address [address] [place] [address] Care Team Providers Name Role Phone PERNELL, YAFRANK Mcleod Unavailable Unavailable Problems This patient has no known problems. Allergies, Adverse Reactions, Alerts This patient has no known allergies or adverse reactions. Medications This patient has no known medications. Results Test Description Test Time Test Comments Text Results Atomic Results Result Comments WOUND CULTURE + GRAM STAIN 2019-03-30 13:54:00 Test Item Value Reference Range Comments CULTURE (BEAKER) (test glll=5537) No growth GRAM STAIN RESULT (BEAKER) (test jsal=6288) 1+ WBCs GRAM STAIN RESULT (BEAKER) (test xjwt=52517) 1+ gram positive cocci in pairs POCT-GLUCOSE [id number] 07:17:00 Test Item Value Reference Range Comments POC-GLUCOSE METER (BEAKER) 88 mg/dL 70-110 TESTED AT [address] (test dotp=9076) [facility] [address] POCT-GLUCOSE [id number] 21:10:00 Test Item Value Reference Range Comments POC-GLUCOSE METER (BEAKER) 126 mg/dL 70-110 TESTED AT [address] (test pher=7346) [facility] [address] POCT-GLUCOSE [id number] 17:08:00 Test Item Value Reference Range Comments POC-GLUCOSE METER (BEAKER) 79 mg/dL 70-110 TESTED AT [address] (test tltr=6015) [facility] [address] POCT-GLUCOSE [id number] 11:59:00 Test Item Value Reference Range Comments POC-GLUCOSE METER (BEAKER) 88 mg/dL 70-110 TESTED AT [address] (test wzfo=4722) [facility] [address] POCT-GLUCOSE [id number] 08:38:00 Test Item Value Reference Range Comments POC-GLUCOSE METER (BEAKER) 106 mg/dL 70-110 TESTED AT [address] (test ebal=0263) [facility] [address] POCT-GLUCOSE [id number] 20:54:00 Test Item Value Reference Range Comments POC-GLUCOSE METER (BEAKER) 85 mg/dL 70-110 TESTED AT [address] (test hwwi=6896) [facility] [address] POCT-GLUCOSE [id number] 12:27:00 Test Item Value Reference Range Comments POC-GLUCOSE METER (BEAKER) 81 mg/dL 70-110 TESTED AT [address] (test iatu=0209) [facility] [address] POCT-GLUCOSE [id number] 21:51:00 Test Item Value Reference Range Comments POC-GLUCOSE METER (BEAKER) 111 mg/dL 70-110 TESTED AT [address] (test wcbg=7919) [facility] [address] POCT-GLUCOSE [id number] 17:21:00 Test Item Value Reference Range Comments POC-GLUCOSE METER (BEAKER) 109 mg/dL 70-110 TESTED AT [address] (test fnnp=9630) [facility] [address] POCT-GLUCOSE [id number] 12:07:00 Test Item Value Reference Range Comments POC-GLUCOSE METER (BEAKER) 85 mg/dL 70-110 TESTED AT [address] (test whgc=5854) [facility] [address] POCT-GLUCOSE [id number] 08:24:00 Test Item Value Reference Range Comments POC-GLUCOSE METER (BEAKER) 125 mg/dL 70-110 TESTED AT [address] (test fpbj=5773) [facility] [address] POCT-GLUCOSE [id number] 21:49:00 Test Item Value Reference Range Comments POC-GLUCOSE METER (BEAKER) 84 mg/dL 70-110 TESTED AT [address] (test xrzy=7623) [facility] [address] POCT-GLUCOSE [id number] 18:33:00 Test Item Value Reference Range Comments POC-GLUCOSE METER (BEAKER) 169 mg/dL 70-110 TESTED AT [address] (test ywoj=0775) [facility] [address] POCT-GLUCOSE [id number] 12:06:00 Test Item Value Reference Range Comments POC-GLUCOSE METER (BEAKER) 86 mg/dL 70-110 TESTED AT [address] (test ufnn=3030) [facility] [address] POCT-GLUCOSE [id number] 08:37:00 Test Item Value Reference Range Comments POC-GLUCOSE METER (BEAKER) 122 mg/dL 70-110 TESTED AT [address] (test kign=8889) [facility] [address] POCT-GLUCOSE [id number] 22:12:00 Test Item Value Reference Range Comments POC-GLUCOSE METER (BEAKER) 109 mg/dL 70-110 TESTED AT [address] (test ylyv=0452) [facility] [address] POCT-GLUCOSE [id number] 18:19:00 Test Item Value Reference Range Comments POC-GLUCOSE METER (BEAKER) 81 mg/dL 70-110 TESTED AT [address] (test vzij=0325) [facility] [address] POCT-GLUCOSE [id number] 21:49:00 Test Item Value Reference Range Comments POC-GLUCOSE METER (BEAKER) 90 mg/dL 70-110 TESTED AT [address] (test tlpo=7650) [place] [id number] POCT-GLUCOSE [id number] 17:11:00 Test Item Value Reference Range Comments POC-GLUCOSE METER (BEAKER) 113 mg/dL 70-110 TESTED AT [address] (test mmns=5992) [facility] [address] POCT-GLUCOSE [id number] 13:03:00 Test Item Value Reference Range Comments POC-GLUCOSE METER (BEAKER) 92 mg/dL 70-110 TESTED AT [address] (test vvkc=7965) [place] [id number] POCT-GLUCOSE [id number] 08:27:00 Test Item Value Reference Range Comments POC-GLUCOSE METER (BEAKER) 90 mg/dL 70-110 TESTED AT [address] (test tkxi=8844) [facility] [address] [id number] 05:28:00 Test Item Value Reference Range Comments MAGNESIUM (BEAKER) (test gkcr=034) 1.9 mg/dL 1.6-2.6 BASIC METABOLIC [id number] 05:28:00 Test Item Value Reference Range Comments SODIUM (BEAKER) (test 139 meq/L 136-145 lvim=251) POTASSIUM (BEAKER) (test 4.2 meq/L 3.5-5.1 hqwq=352) CHLORIDE (BEAKER) (test 103 meq/L 98-107 uilz=100) CO2 (BEAKER) (test 27 meq/L 22-29 djbl=712) BLOOD UREA NITROGEN 23 mg/dL 7-21 (BEAKER) (test zfgl=410) CREATININE (BEAKER) (test 0.72 mg/dL 0.57-1.25 fufo=402) GLUCOSE RANDOM (BEAKER) 88 mg/dL 70-105 (test hkep=476) CALCIUM (BEAKER) (test 8.7 mg/dL 8.4-10.2 bwvn=219) EGFR (BEAKER) (test 110 mL/min/1.73 sq m ESTIMATED GFR IS NOT ynye=6593) ACCURATE CREATININE CLEARANCE IN PREDICTING GLOMERULAR FILTRATION RATE. ESTIMATED GFR IS NOT APPLICABLE FOR DIALYSIS PATIENTS. PROTHROMBIN [id number] 05:19:00 Test Item Value Reference Range Comments PROTIME (BEAKER) (test moau=128) 14.6 seconds 11.7-14.7 INR (BEAKER) (test vwyf=284) 1.2 <=5.9 RECOMMENDED COUMADIN/WARFARIN INR THERAPY RANGESSTANDARD DOSE: 2.0 - 3.0 Includes: PROPHYLAXIS forvenous thrombosis, systemic embolization; TREATMENT for venous thrombosis and/or pulmonary embolus.HIGH RISK: Target INR is 2.5-3.5 for patients with mechanical heart valves.CBC (HEMOGRAM ONLY)2019-03-22 05:08:00 Test Item Value Reference Range Comments WHITE BLOOD CELL COUNT (BEAKER) (test dfvn=708) 11.8 K/ L 3.5-10.5 RED BLOOD CELL COUNT (BEAKER) (test wdgz=664) 4.69 M/ L 4.63-6.08 HEMOGLOBIN (BEAKER) (test quph=403) 13.6 GM/DL 13.7-17.5 HEMATOCRIT (BEAKER) (test vodn=825) 43.8 % 40.1-51.0 MEAN CORPUSCULAR VOLUME (BEAKER) (test eqss=070) 93.4 fL 79.0-92.2 MEAN CORPUSCULAR HEMOGLOBIN (BEAKER) (test 29.0 pg 25.7-32.2 rinf=150) MEAN CORPUSCULAR HEMOGLOBIN CONC (BEAKER) (test 31.1 GM/DL 32.3-36.5 pyuu=468) RED CELL DISTRIBUTION WIDTH (BEAKER) (test 15.1 % 11.6-14.4 fdhj=721) PLATELET COUNT (BEAKER) (test pwnm=580) 218 K/CU MM 150-450 MEAN PLATELET VOLUME (BEAKER) (test iute=546) 10.9 fL 9.4-12.4 NUCLEATED RED BLOOD CELLS (BEAKER) (test 0 /100 WBC 0-0 yorz=255) POCT-GLUCOSE [id number] 23:01:00 Test Item Value Reference Range Comments POC-GLUCOSE METER (BEAKER) 81 mg/dL 70-110 TESTED AT [address] (test zzlq=8191) [facility] [address] RAD, CHEST, 1 VIEW, NON [id number] 16:56:00Reason for exam:->pre opShould this be performed at the bedside?->YesFINAL REPORT EXAM: Frontal chest radiograph, 2 images HISTORY PROVIDED: PreopCOMPARISON: None available IMPRESSION:There is pulmonary vascular congestion with bilateral interstitial prominence and mild interstitial edema is not excluded. No pneumothorax or significant pleural fluid. The cardiac silhouette is enlarged. The thoracic aorta is tortuous/ectatic and demonstrates atherosclerotic calcification. No acute osseous abnormality. Signed: Joaquin Sanders [facility] Verified Date/Time: 03/21/2019 16:56:42 Reading Location: [facility] 04: 56 [id number] 16:42:00 Test Item Value Reference Range Comments PARTIAL THROMBOPLASTIN TIME (BEAKER) (test 32.8 seconds 22.5-36.0 tsdp=699) PROTHROMBIN [id number] 16:41:00 Test Item Value Reference Range Comments PROTIME (BEAKER) (test gmiz=887) 15.7 seconds 11.7-14.7 INR (BEAKER) (test qizj=805) 1.3 <=5.9 RECOMMENDED COUMADIN/WARFARIN INR THERAPY RANGESSTANDARD DOSE: 2.0 - 3.0 Includes: PROPHYLAXIS forvenous thrombosis, systemic embolization; TREATMENT for venous thrombosis and/or pulmonary embolus.HIGH RISK: Target INR is 2.5-3.5 for patients with mechanical heart valves.CBC W/PLT COUNT & AUTO [id number] 16:35:00 Test Item Value Reference Range Comments WHITE BLOOD CELL COUNT (BEAKER) (test bsfh=243) 17.6 K/ L 3.5-10.5 RED BLOOD CELL COUNT (BEAKER) (test slpp=882) 4.63 M/ L 4.63-6.08 HEMOGLOBIN (BEAKER) (test pxvr=803) 13.2 GM/DL 13.7-17.5 HEMATOCRIT (BEAKER) (test fctl=286) 42.8 % 40.1-51.0 MEAN CORPUSCULAR VOLUME (BEAKER) (test fktx=223) 92.4 fL 79.0-92.2 MEAN CORPUSCULAR HEMOGLOBIN (BEAKER) (test 28.5 pg 25.7-32.2 suwl=361) MEAN CORPUSCULAR HEMOGLOBIN CONC (BEAKER) (test 30.8 GM/DL 32.3-36.5 tefy=115) RED CELL DISTRIBUTION WIDTH (BEAKER) (test 15.1 % 11.6-14.4 qkpm=513) PLATELET COUNT (BEAKER) (test ysil=072) 278 K/CU MM 150-450 MEAN PLATELET VOLUME (BEAKER) (test ayey=734) 10.7 fL 9.4-12.4 NUCLEATED RED BLOOD CELLS (BEAKER) (test 0 /100 WBC 0-0 bwku=786) NEUTROPHILS RELATIVE PERCENT (BEAKER) (test 83 % qwmk=372) LYMPHOCYTES RELATIVE PERCENT (BEAKER) (test 8 % wchn=446) MONOCYTES RELATIVE PERCENT (BEAKER) (test 8 % ybbc=031) EOSINOPHILS RELATIVE PERCENT (BEAKER) (test 0 % belt=898) BASOPHILS RELATIVE PERCENT (BEAKER) (test 0 % lqmh=421) NEUTROPHILS ABSOLUTE COUNT (BEAKER) (test 14.56 K/ L 1.78-5.38 uhgz=317) LYMPHOCYTES ABSOLUTE COUNT (BEAKER) (test 1.47 K/ L 1.32-3.57 xsxy=020) MONOCYTES ABSOLUTE COUNT (BEAKER) (test 1.43 K/ L 0.30-0.82 aesn=836) EOSINOPHILS ABSOLUTE COUNT (BEAKER) (test 0.04 K/ L 0.04-0.54 garp=764) BASOPHILS ABSOLUTE COUNT (BEAKER) (test 0.06 K/ L 0.01-0.08 jezb=324) IMMATURE GRANULOCYTES-RELATIVE PERCENT (BEAKER) 1 % 0-1 (test jsdx=2188) HEMOGLOBIN [id number] 12:32:00 Test Item Value Reference Range Comments HEMOGLOBIN A1C (BEAKER) (test cwiu=572) 6.7 % 4.3-6.1
--- OUTSIDE RECORDS SUMMARY | 2019-05-10 06:24 | XMS REPORT | Clinical Summary ---
:[address] [facility] Address [address] [place] [address] Care Team Providers Name Role Phone Unavailable Primary Care Provider Unavailable Allergies No Known Allergies Medications Medication Sig Dispensed Refills Start Date End Date Status apixaban (ELIQUIS) 5 Take 5 mg by 0 Active mg Tab tablet mouth 2 (two) times daily. losartan (COZAAR) 100 Take 1 tablet 0 03/29/2019 Active MG tablet (100 mg total) 0 by mouth daily. carvedilol (COREG) 25 Take 1 tablet 0 03/28/2019 Active MG tablet (25 mg total) 0 by mouth 2 (two) times daily. chlorthalidone Take 1 tablet 0 03/29/2019 Active (HYGROTON) 25 MG (25 mg total) 0 tablet by mouth daily. cyclobenzaprine Take 1 tablet 0 03/28/2019 Active (FLEXERIL) 10 MG (10 mg total) tablet by mouth 3 (three) times daily as needed for Muscle spasms. gabapentin Take 1 capsule 0 03/28/2019 Active (NEURONTIN) 300 MG (300 mg total) 0 capsule by mouth 3 (three) times daily. lidocaine (LIDODERM) Place 1 patch 30 patch 0 03/28/2019 Active 5 % patch onto the skin daily Remove & Discard patch within 12 hours or as directed by MD. naproxen (NAPROSYN) Take 1 tablet 0 03/28/2019 Active 500 MG tablet (500 mg total) by mouth 2 (two) times daily with breakfast and dinner. polyethylene glycol Take 17 g by 14 each 0 03/29/2019 Active (GLYCOLAX) 17 gram mouth daily. packet senna-docusate Take 2 tablets 0 03/28/2019 Active (SENOKOT S) 8.6-50 mg by mouth per tablet nightly. metFORMIN Take 1 tablet 0 03/28/2019 Active (GLUCOPHAGE) 500 MG (500 mg total) tablet by mouth 2 (two) times daily with breakfast and dinner. metoprolol Take 100 mg by 0 Discontinued (LOPRESSOR) 100 MG mouth 2 (two) 9 tablet times daily. losartan (COZAAR) 50 Take 50 mg by 0 Discontinued MG tablet mouth daily. 9 HYDROcodone-acetamino Take 1 tablet 0 03/28/2019 phen (NORCO 10-325) by mouth every 9 10-325 mg per tablet 4 (four) hours as needed for up to 30 days. Max Daily Amount: 6 tablets Active Problems Problem Noted Date Atrial flutter 03/21/2019 Lumbar back pain with radiculopathy affecting right lower extremity 03/21/2019 Encounters Date Type Specialty Care Team Description 03/21/2019 - [facility] Internal [facility] Atrial flutter, unspecified type ([facility]); 03/28/2019 Encounter Medicine D Spinal stenosis of lumbar region, unspecified whether neurogenic claudication present; Mohsen, Essential hypertension; MD Vincenzo Morbid obesity (HCC); Xochitl Katz, Preoperative cardiovascular examination; Encounter for pre-operative cardiovascular clearance; Lumbar back pain with radiculopathy affecting right lower extremity; Back abscess; Chronic anticoagulation 03/21/2019 Travel after 05/09/2018 Family History Medical History Relation Name Comments Coronary artery disease Father Diabetes Father Aneurysm Mother COPD Sister Hypertension Sister Relation Name Status Comments Father Mother Sister Alive Sister Alive Social History Tobacco Use Types Packs/Day Years Used Date Current Every Day Smoker Cigarettes 1 Started: 1995 Smokeless Tobacco: Never Used Alcohol Use Drinks/Week oz/Week Comments No Alcohol Habits Answer Date Recorded How often do you have a drink containing alcohol? Never 03/21/2019 How many drinks containing alcohol do you have on a Patient refused 2018 typical day when you are drinking? How often do you have six or more drinks on one Never 03/21/2019 occasion? Sex Assigned at Date Recorded Not on file Job Start Date Occupation Industry Not on file Not on file Not on file Travel History Travel Start Travel End No recent travel history available. Last Filed Vital Signs Vital Sign Reading Time Taken Blood Pressure 144/88 03/28/2019 3:00 PM CDT Pulse 60 03/28/2019 3:00 PM CDT Temperature 35.8 C (96.5 F) 03/28/2019 3:00 PM CDT Respiratory Rate 18 03/28/2019 3:00 PM CDT Oxygen Saturation 97% 03/28/2019 3:00 PM CDT Inhaled Oxygen Concentration - - Weight 176.9 kg (390 lb) 03/21/2019 1:00 AM CDT Height 182.9 cm (6') 03/21/2019 1:00 AM CDT Body Mass Index 52.89 03/21/2019 1:00 AM CDT Plan of Treatment Not on file Procedures Procedure Name Priority Date/Time Associated Comments Diagnosis RHYTHM STRIP - SCAN 03/29/2019 1:40 PM CDT POCT-GLUCOSE METER Routine 03/28/2019 7:13 Results for this AM CDT procedure are in the results section. POCT-GLUCOSE METER Routine 03/27/2019 9:07 Results for this PM CDT procedure are in the results section. POCT-GLUCOSE METER Routine 03/27/2019 5:02 Results for this PM CDT procedure are in the results section. WOUND CULTURE + GRAM KELLEY 03/27/2019 4:56 Results for this STAIN PM CDT procedure are in the results section. POCT-GLUCOSE METER Routine 03/27/2019 11:51 Results for this AM CDT procedure are in the results section. POCT-GLUCOSE METER Routine 03/27/2019 7:26 Results for this AM CDT procedure are in the results section. POCT-GLUCOSE METER Routine 03/26/2019 8:53 Results for this PM CDT procedure are in the results section. POCT-GLUCOSE METER Routine 03/26/2019 12:20 Results for this PM CDT procedure are in the results section. POCT-GLUCOSE METER Routine 03/25/2019 8:53 Results for this PM CDT procedure are in the results section. POCT-GLUCOSE METER Routine 03/25/2019 5:17 Results for this PM CDT procedure are in the results section. POCT-GLUCOSE METER Routine 03/25/2019 12:00 Results for this PM CDT procedure are in the results section. POCT-GLUCOSE METER Routine 03/25/2019 8:22 Results for this AM CDT procedure are in the results section. POCT-GLUCOSE METER Routine 03/24/2019 9:47 Results for this PM CDT procedure are in the results section. POCT-GLUCOSE METER Routine 03/24/2019 6:23 Results for this PM CDT procedure are in the results section. POCT-GLUCOSE METER Routine 03/24/2019 11:54 Results for this AM CDT procedure are in the results section. POCT-GLUCOSE METER Routine 03/24/2019 7:58 Results for this AM CDT procedure are in the results section. POCT-GLUCOSE METER Routine 03/23/2019 9:52 Results for this PM CDT procedure are in the results section. POCT-GLUCOSE METER Routine 03/23/2019 6:03 Results for this PM CDT procedure are in the results section. POCT-GLUCOSE METER Routine 03/22/2019 9:43 Results for this PM CDT procedure are in the results section. POCT-GLUCOSE METER Routine 03/22/2019 5:03 Results for this PM CDT procedure are in the results section. POCT-GLUCOSE METER Routine 03/22/2019 1:00 Results for this PM CDT procedure are in the results section. POCT-GLUCOSE METER Routine 03/22/2019 8:25 Results for this AM CDT procedure are in the results section. PROTHROMBIN TIME/INR Routine 03/22/2019 4:39 Results for this AM CDT procedure are in the results section. CBC (HEMOGRAM ONLY) Routine 03/22/2019 4:39 Results for this AM CDT procedure are in the results section. MAGNESIUM Routine 03/22/2019 4:39 Results for this AM CDT procedure are in the results section. BASIC METABOLIC PANEL Routine 03/22/2019 4:39 Results for this (7) AM CDT procedure are in the results section. POCT-GLUCOSE METER Routine 03/21/2019 9:09 Results for this PM CDT procedure are in the results section. CBC W/PLT COUNT & STAT 03/21/2019 3:55 Results for this AUTO DIFFERENTIAL PM CDT procedure are in the results section. APTT STAT 03/21/2019 3:55 Results for this PM CDT procedure are in the results section. PROTHROMBIN TIME/INR STAT 03/21/2019 3:55 Results for this PM CDT procedure are in the results section. CBC W/PLT COUNT & STAT 03/21/2019 3:55 Results for this AUTO DIFFERENTIAL PM CDT procedure are in the results section. XR CHEST 1 VIEW STAT 03/21/2019 3:52 Results for this PORTABLE/BEDSIDE PM CDT procedure are in the results section. HEMOGLOBIN A1C Routine 03/21/2019 11:56 Results for this AM CDT procedure are in the results section. ECG 12-LEAD Routine 03/21/2019 7:57 Results for this AM CDT procedure are in the results section. after 05/09/2018 Results RHYTHM STRIP - SCAN (03/29/2019 1:40 PM CDT) Narrative Performed At POC-Glucose meter (03/28/2019 7:13 AM CDT)Only the most recent of22 resultswithin the time period is included. POC-Glucose Meter 88Comment: TESTED AT 70 - 110 mg/dL [address] [id number] Specimen Blood Performing Organization Address City/[facility]/[place] Phone Number [address] [address] [phone] CENTER Wound culture + gram stain (03/27/2019 4:56 PM CDT) Result No growth [facility] Gram Stain Result 1+ WBCs [facility] Gram Stain Result 1+ gram positive cocci in [facility] Specimen Abscess Performing Organization Address City/[facility]/[place] Phone Number [address] [address] CENTER Prothrombin time/INR (03/22/2019 4:39 AM CDT)Only the most recent of2 resultswithin the time period is included. Protime 14.6 11.7 - 14.7 seconds [facility] INR 1.2 <=5.9 [facility] Specimen Blood Narrative Performed At RECOMMENDED COUMADIN/WARFARIN INR THERAPY [facility] RANGES STANDARD DOSE: 2.0 - 3.0 Includes: PROPHYLAXIS for venous thrombosis, systemic embolization; TREATMENT for venous thrombosis and/or pulmonary embolus. HIGH RISK: Target INR is 2.5-3.5 for patients with mechanical heart valves. Performing Organization Address City/State/Zipcode Phone Number [address] [address] [place] CBC (Hemogram only) (03/22/2019 4:39 AM CDT) WBC 11.8 (H) 3.5 - 10.5 K/L [facility] RBC 4.69 4.63 - 6.08 M/L [facility] Hemoglobin 13.6 (L) 13.7 - 17.5 GM/DL [facility] Hematocrit 43.8 40.1 - 51.0 % [facility] MCV 93.4 (H) 79.0 - 92.2 fL [facility] MCH 29.0 25.7 - 32.2 pg [facility] MCHC 31.1 (L) 32.3 - 36.5 GM/DL [facility] RDW 15.1 (H) 11.6 - 14.4 % [facility] Platelets 218 150 - 450 K/CU MM [facility] MPV 10.9 9.4 - 12.4 fL [facility] nRBC 0 0 - 0 /100 WBC [facility] Specimen Blood Performing Organization Address City/[facility]/Zipcode Phone Number [address] [address] [phone] CENTER Magnesium (03/22/2019 4:39 AM CDT) Magnesium 1.9 1.6 - 2.6 mg/dL [facility] Specimen Blood Performing Organization Address City/[facility]/Zipcode Phone Number [address] [address] [place] Basic metabolic panel (03/22/2019 4:39 AM CDT) Sodium 139 136 - 145 meq/L [facility] Potassium 4.2 3.5 - 5.1 meq/L [facility] Chloride 103 98 - 107 meq/L [facility] CO2 27 22 - 29 meq/L [facility] BUN 23 (H) 7 - 21 mg/dL [facility] Creatinine 0.72 0.57 - 1.25 mg/dL [facility] Glucose 88 70 - 105 mg/dL [facility] Calcium 8.7 8.4 - 10.2 mg/dL [facility] EGFR 110Comment: ESTIMATED GFR IS mL/min/1.73 sq m [facility] NOT ACCURATE CREATININE [facility] CENTER CLEARANCE IN PREDICTING GLOMERULAR FILTRATION RATE. ESTIMATED GFR IS NOT APPLICABLE FOR DIALYSIS PATIENTS. Specimen Blood Performing Organization Address City/State/Zipcode Phone Number [facility] [address] [place] [address] [phone] [place] CBC with platelet count + automated diff (03/21/2019 3:55 PM CDT) WBC 17.6 (H) 3.5 - 10.5 K/L [facility] RBC 4.63 4.63 - 6.08 M/L [facility] Hemoglobin 13.2 (L) 13.7 - 17.5 GM/DL [facility] Hematocrit 42.8 40.1 - 51.0 % [facility] MCV 92.4 (H) 79.0 - 92.2 fL [facility] MCH 28.5 25.7 - 32.2 pg [facility] MCHC 30.8 (L) 32.3 - 36.5 GM/DL [facility] RDW 15.1 (H) 11.6 - 14.4 % [facility] Platelets 278 150 - 450 K/CU MM [facility] MPV 10.7 9.4 - 12.4 fL [facility] nRBC 0 0 - 0 /100 WBC [facility] % Neutros 83 % [facility] % Lymphs 8 % [facility] % Monos 8 % [facility] % Eos 0 % [facility] % Baso 0 % [facility] # Neutros 14.56 (H) 1.78 - 5.38 K/L [facility] # Lymphs 1.47 1.32 - 3.57 K/L [facility] # Monos 1.43 (H) 0.30 - 0.82 K/L [facility] # Eos 0.04 0.04 - 0.54 K/L [facility] # Baso 0.06 0.01 - 0.08 K/L [facility] Immature 1 0 - 1 % [facility] Granulocytes-[facility] Specimen Blood Performing Organization Address City/State/Zipcode Phone Number [place] [phone] [place] [address] [place] aPTT (03/21/2019 3:55 PM CDT) PTT 32.8 22.5 - 36.0 seconds [facility] Specimen Blood Performing Organization Address City/State/Zipcode Phone Number [address] [address] [place] XR chest 1 view portable / bedside (03/21/2019 3:52 PM CDT) Specimen Narrative Performed At FINAL REPORT GE RIS EXAM: Frontal chest radiograph, 2 images HISTORY PROVIDED: Preop COMPARISON: None available IMPRESSION: There is pulmonary vascular congestion with bilateral interstitial prominence and mild interstitial edema is not excluded. No pneumothorax or significant pleural fluid. The cardiac silhouette is enlarged. The thoracic aorta is tortuous/ectatic and demonstrates atherosclerotic calcification. No acute osseous abnormality. Signed: Joaquin Sanders MD Report Verified Date/Time:03/21/2019 16:56:42 Reading Location: [facility] Procedure Note Interface, External Ris In - 03/21/2019 4:58 PM CDT FINAL REPORT EXAM: Frontal chest radiograph, 2 images HISTORY PROVIDED: Preop COMPARISON: None available IMPRESSION: There is pulmonary vascular congestion with bilateral interstitial prominence and mild interstitial edema is not excluded. No pneumothorax or significant pleural fluid. The cardiac silhouette is enlarged. The thoracic aorta is tortuous/ectatic and demonstrates atherosclerotic calcification. No acute osseous abnormality. Signed: Joaquin Sanders MD Report Verified Date/Time: 03/21/2019 16:56:42 Reading Location: [facility] Women Performing Organization Address City/State/Zipcode Phone Number GE RIS Hemoglobin A1c (03/21/2019 11:56 AM CDT) Hemoglobin A1C 6.7 (H) 4.3 - 6.1 % [facility] Specimen Blood Performing Organization Address City/[facility]/Zipcode Phone Number [address] [address] CENTER ECG 12 lead (03/21/2019 7:57 AM CDT) Specimen Narrative Performed At Ventricular Rate 113 BPM GE MUSE Atrial Rate 249 BPM QRS Duration 108 ms Q-T Interval 322 ms QTC Calculation(Bazett) 441 ms R Margaret -5 degrees T Margaret 65 degrees Atrial flutter with variable A-V block Nonspecific T wave abnormality Abnormal ECG No previous ECGs available Confirmed by MD Shiv, [facility] ([id number][facility] on 03/21/2019 9:41:55 PM Procedure Note Interface, External Ris In - 03/21/2019 9:42 PM CDT Ventricular Rate 113 BPM Atrial Rate 249 BPM QRS Duration 108 ms Q-T Interval 322 ms QTC Calculation(Bazett) 441 ms R Margaret -5 degrees T Margaret 65 degrees Atrial flutter with variable A-V block Nonspecific T wave abnormality Abnormal ECG No previous ECGs available Confirmed by MD Shiv, Kemi ([id number]) on 03/21/2019 9:41:55 PM Performing Organization Address City/State/Zipcode Phone Number GE MUSE after 05/09/2018 Insurance Payer Benefit Plan / Subscriber ID Type Phone Address Group BLUE CROSS/BLUE BCBS PPO POS EPO xxxxxxxxxxxx PPO [phone] [address] [place] [address] Advance Directives For more information, please contact:[address] [phone] Code Status Date Activated Date Inactivated Comments Full Code 03/21/2019 1:24 AM 03/28/2019 7:54 PM This code status was determined by: Patient
[2019-05-10] MEDS ORDERED: HEPA 1000U/500MLS 0 UNIT/0 ML BAG IV ONE (06:47)
[2019-05-10] MEDS ORDERED: LIDOCAINE 1% MPF 30 ML VIAL ONE (06:47)
[2019-05-10] MEDS ORDERED: NA CHLORIDE 0.9% 500 ML ONE (06:48)
[2019-05-10] MEDS ORDERED: MIDAZOLAM HCL 5 MG/5 ML INJ ONE ×2 (07:28→07:29)
[2019-05-10] MEDS ORDERED: ATROPINE SULF 1 MG/10 ML SYR IV ONE (07:29)
[2019-05-10] MEDS ORDERED: FLUMAZENIL 0.1 MG/ML (5 mL VIAL) IV ONE (07:47)
[2019-05-10] MEDS ORDERED: MIDAZOLAM HCL 2 MG/2 ML INJ ONE ×2 (07:47→07:50)
--- NOTE | 2019-05-10 10:08 | EKG ---
Test Date: 2019-05-10 Test Time: 07:53:31 Electric Refrigerator Servicer: DAMON MEASUREMENT RESULTS: Intervals: Rate: 70 KS: 144 QRSD: 98 QT: 444 QTc: 479 [place]: P: 19 KS: 144 QRS: 6 T: 10 INTERPRETIVE STATEMENTS: Normal sinus rhythm Normal ECG Compared to ECG 03/20/2019 09:16:44 Atrial flutter no longer present T-wave abnormality no longer present Electronically Signed On 05-10-19 10:07:16 CDT by Tino Pratt
--- NOTE | 2019-05-10 17:31 | OP ---
Date of Procedure: 05/10/2019 Surgeon: Tino Pratt MD X Ray Equipment Mechanic: Belem Jeff. Admitted as an outpatient on 05/10/2019 for cardioversion. Procedure: Cardioversion. Indication: Atrial fibrillation and flutter. Findings: The patient was in atrial fibrillation and flutter with moderate ventricular response. Description Of Procedure: He received a total of 13 mg of Versed for sedation. He received 2 shocks one with 100 and one with 200 joules to convert him to sinus rhythm. There were no complications or blood loss. Postoperative Diagnoses: Atrial fibrillation, status post successful cardioversion to sinus rhythm. Anesthesia: Total conscious sedation was 30 minutes. The patient will go home on his home medication including carvedilol and Eliquis. I will see him in the office in 2 weeks. LAWSON/ALBERTO Voice ID: [id number] Report ID: [id number]
== END 2019-05-10 08:47 | disposition home or self-care (01) ==
LOC: CCL 06:20
DX: I48.91 Unspecified atrial fibrillation (principal); I10 Essential (primary) hypertension; E78.6 Lipoprotein deficiency; E11.9 Type 2 diabetes mellitus without complications; E78.5 Hyperlipidemia, unspecified; M48.00 Spinal stenosis, site unspecified; G47.30 Sleep apnea, unspecified; F17.210 Nicotine dependence, cigarettes, uncomplicated; E66.9 Obesity, unspecified; Z79.01 Long term (current) use of anticoagulants; Z79.84 Long term (current) use of oral hypoglycemic drugs; Z79.899 Other long term (current) drug therapy; Z82.49 Family history of ischemic heart disease and other diseases of the circulatory system
CPT/HCPCS: 36415; 71046; 80048; 82962; 85025; 85610; 85730; 92960; 93005; J2250

== ENCOUNTER 2021-05-04 10:51 | Day surgery (SDC) | payer BC ==
--- NOTE | 2021-04-30 15:52 | RAD REPORT ---
EXAM DESCRIPTION: RAD - Chest Pa And Lat (2 Views) - 04/30/2021 3:44 pm CLINICAL HISTORY: pre op Chest pain. COMPARISON: Chest Pa And Lat (2 Views) dated 05/08/2019; Chest Single View dated 03/20/2019; Chest Sing le View dated 03/19/2019 FINDINGS: The lungs are mildly emphysematous but clear. The heart is upper limit of normal in size. No displaced fractures. IMPRESSION: Mild COPD.
[2021-04-30 16:33] LABS: Absolute Lymphocytes (CBC) 1.3 K/uL (0.7-4.9); Basophils % 1.4 % (0-1.3); Hematocrit 44.2 % (39.6-49.0); Lymphocytes % 10.7 % (15.3-44.8); MPV 10.1 fL (7.6-11.3)
[2021-04-30 16:42] LABS: Protime INR 1.28
[2021-04-30 16:52] LABS: BUN Blood Urea Nitrogen 17 mg/dL (7-18); Bicarbonate 27 mmol/L (21-32); Glucose Level 90 mg/dL (74-106); Potassium 3.8 mmol/L (3.5-5.1); Sodium Level 138 mmol/L (136-145)
--- NOTE | 2021-05-02 09:47 | EKG ---
Test Date: 2021-04-30 Test Time: 14:44:24 Roll Carrier: SEDRICK MEASUREMENT RESULTS: Intervals: Rate: 78 NV: QRSD: 96 QT: 366 QTc: 417 [place]: P: NV: QRS: 23 T: 48 INTERPRETIVE STATEMENTS: Atrial fibrillation with premature ventricular or aberrantly conducted complexes Abnormal ECG Compared to ECG 05/10/2019 07:53:31 Ventricular premature complex(es) now present Sinus rhythm no longer present Electronically Signed On 05-02-21 09:43:57 CDT by Tino Pratt
[2021-05-04] MEDS ORDERED: NA CHLORIDE 0.9% 500 ML ONE (12:29)
[2021-05-04] MEDS ORDERED: HEPA 1000U/500MLS 2,000 UNIT/1,000 ML BAG IV ONE (12:56)
[2021-05-04] MEDS ORDERED: HEPARIN 5000 UNIT/ML 1 ML VIAL ONE (13:07)
[2021-05-04] MEDS ORDERED: MIDAZOLAM HCL 2 MG/2 ML INJ ONE (13:07)
[2021-05-04] MEDS ORDERED: ATROPINE SULF 1 MG/10 ML SYR IV ONE (13:08)
[2021-05-04] MEDS ORDERED: FENTANYL CITR 100 MCG/2 ML ONE (13:08)
[2021-05-04] MEDS ORDERED: VERAPAMIL HCL 10 MG/4 ML VIAL IV ONE (13:09)
[2021-05-04] MEDS ORDERED: NITROGLYCERIN/D5W 25 MG/250 ML BTL IV ONE (13:09)
[2021-05-04] MEDS ORDERED: NITROGLYCERIN 100 MCG/ML SYR (for cath lab use only) IV ONE (13:09)
[2021-05-04] MEDS ORDERED: TICAGRELOR 90 MG TABLET PO ONE (13:27)
[2021-05-04] MEDS ORDERED: ASPIRIN 325 MG TAB ONE (13:27)
[2021-05-04] MEDS ORDERED: CLOPIDOGREL 75 MG TABLET ONE (13:27)
[2021-05-04 15:18] VITALS: TEMP 97
--- NOTE | 2021-05-04 15:57 | OP ---
Date of Procedure: 05/04/2021 Surgeon: JASMIN BAY Procedures Performed: 1.Selective coronary angiogram. 2.Left heart catheterization. Access: Right radial artery 6-Greenlandic closed with TR band. Complications: None. Bleeding: Less than 10 mL. Description Of Procedure: After risks, benefits, and alternatives were explained, the patient agreed to procedure and signed informed consent. The patient was brought into the cardiac catheterization laboratory, prepped and draped in usual sterile fashion. Then, we accessed right radial artery using a pediatric micropuncture kit, placed a 6-Greenlandic Slender sheath, and then we took a 5-Greenlandic Derby 4 .0 catheter into the aortic root over a J-wire, engaged the left main and right coronary artery and t ook standard views. Then, we removed the catheter and sheath, placed TR band with good hemostasis. Findings: 1.Left main; large, normal. 2.LAD; large with luminal irregularities throughout and focal 20% to 30% distally. 3.Left circumflex; moderate-size vessel with mid 30% stenosis. The rest of the artery is with mild luminal irregularity. 4.RCA; large, dominant with distal 30% stenosis. Otherwise, no significant disease. Conclusion: Very mild nonobstructive coronary artery disease as described above. Recommendations: 1.Aggressive medical management and cardiac risk factor modification. 2.The catheter was passed across the aortic valve and recorded LVEDP and upon pullback, there was no difference in pressure and LVEDP was 24 mmHg. SR/MODL Voice ID: [id number] Report ID: [id number]
[2021-05-04] MEDS ORDERED: HYDRALAZINE HCL 20 MG/ML VIAL ONE (15:58)
[2021-05-04 16:20] VITALS: O2SAT 95
[2021-05-04 16:30] VITALS: BP 180/107
== END 2021-05-04 15:55 | disposition home or self-care (01) ==
LOC: CCL 10:51
PROVIDERS: ATTEND Internal Medicine
DX: I25.110 Atherosclerotic heart disease of native coronary artery with unstable angina pectoris (principal); I48.21 Permanent atrial fibrillation; I10 Essential (primary) hypertension; E78.2 Mixed hyperlipidemia; G47.33 Obstructive sleep apnea (adult) (pediatric); E11.9 Type 2 diabetes mellitus without complications; M48.00 Spinal stenosis, site unspecified; E66.01 Morbid (severe) obesity due to excess calories; Z68.43 Body mass index [BMI] 50.0-59.9, adult; Z87.891 Personal history of nicotine dependence; Z20.822 Contact with and (suspected) exposure to COVID-19; Z82.49 Family history of ischemic heart disease and other diseases of the circulatory system
CPT/HCPCS: 93005; 85025; 80048; 36415; 85610; 82947; 85730; 71046; 93458; U0003; C1893; J0360; J1644 ×2; J3010; J7040; J2250

== ENCOUNTER 2024-06-14 22:48 | Inpatient (IN) | payer BC, OTHER ==
--- NOTE | 2024-06-14 23:21 | P.HP ---
Certification for Inpatient With expected LOS: >2 Midnights Practitioner: I am a practitioner with admitting privileges, knowledge of patient current condition, hospital course, and medical plan of care. Services: Services provided to patient in accordance with Admission requirements found in Title 42 Section 412.3 of the Code of Federal Regulations Patient History Date of Service: 06/15/24 Reason for admission: thigh abscess right History of Present Illness: 68-year-old male with history of diabetes, atrial fibrillation, hypertension, previous tobacco use presents from outside hospital with what he describes as a 5 to 7-day progressive swelling of his right inner thigh. The patient does report that there was some discharge. He does report having pain. states that in the last 5 months he has not taking his medications. He reports that his primary care . He reports that he normally takes metformin. He is also on Eliquis for atrial fibrillation which she has not taken for several months. He does have history of coronary artery disease. And does report that he does not have any chest pain or difficulty breathing or fevers currently outside hospital contacted general surgeon who recommended transfer for evaluation Ultrasound right medial thigh done which showed 6 x 2 x 8 cm phlegmon and a second area which measured 1.5 x 1.7 x 2.5 cm heterogeneous hypechoic area Outside hospital reports that they collected blood cultures Allergies No Known Allergies Allergy (Verified 06/14/24 23:20) Home Medications: carvediloL [Coreg] 25 mg PO BID 03/19/19 Apixaban [Eliquis *] 2.5 mg PO BID 06/14/24 Losartan Potassium 100 mg PO DAILY 06/14/24 Metformin HCl 500 mg PO BID 06/14/24 hydroCHLOROthiazide [Hydrochlorothiazide] 25 mg PO DAILY 06/14/24 - Past Medical/Surgical History Diabetic: No -: right leg sciatica -: hypertension -: hyperlipidemia -: mini stroke - Social History Alcohol use: No CD- Drugs: No Caffeine use: Yes Review of Systems 10-point ROS is otherwise unremarkable Musculoskeletal: Leg Pain Physical Examination - Vital Signs Temperature: 98.1 F Blood Pressure: 130/79 Pulse: 107 Respirations: 16 Pulse Ox (%): 96 - Physical Exam General: In no apparent distress, Oriented x3 HEENT: Atraumatic, Normocephalic Neck: Supple Cardiovascular: Regular rate/rhythm, Normal S1 S2 Gastrointestinal: Soft and benign, Non-distended Musculoskeletal: No contractures (Right medial thigh/ groin area erythema with fluctuance and tenderness noted) Integumentary: Other Assessment and Plan - Problems (Diagnosis) (1) Abscess Current Visit: Yes Status: Acute (2) Cellulitis Current Visit: Yes Status: Acute (3) Diabetes Current Visit: Yes Status: Acute (4) Atrial fibrillation Current Visit: Yes Status: Acute (5) HTN (hypertension) Current Visit: No Status: Chronic Qualifiers: Hypertension type: essential hypertension - Plan 68-year-old male with history of diabetes, atrial fibrillation, previous tobacco use presents from outside hospital with right medial thigh cellulitis and swelling #cellulitis #right thigh abscess -- Admit to [facility] --Cultures at outside hospital --Continue vancomycin, rocephin --check CT of right thigh --surgery consulted #Diabetes --fsbs , ssi #HTN #Afib --hold eliquis --await medication reconciliation --add prn metoprolol #previous tobacco use --monitor --sats stable on RA DVT: Lovenox Code: Full - Advance Directives Does patient have a Living Will: No Does patient have a Durable POA for Healthcare: No
[2024-06-14] MEDS ORDERED: ACETAMINOPHEN 500 MG TAB PO PRN (23:42)
[2024-06-14] MEDS: VANCOMYCIN 1 GM in NA CHLORIDE 0.9% 250 ML IVPB SCH (23:45)
[2024-06-14] MEDS ORDERED: METOPROLOL TARTRATE 5 MG/5 ML INJ IV PRN (23:47)
[2024-06-15] MEDS: VANCOMYCIN 1 GM/VIAL ONE (00:30)
[2024-06-15] MEDS: NA CHLORIDE 0.9% 500 ML ONE (00:32)
[2024-06-15] MEDS: VANCOMYCIN 2 GM in NA CHLORIDE 0.9% 500 ML IVPB ONE (00:45)
[2024-06-15] MEDS: NA CHLORIDE 0.9% 1,000 ML IV SCH (00:45)
[2024-06-15 06:00] LABS: Specific Gravity 1.012 (1.005-1.030); Sqamous Epithelial <5 /HPF (None Seen); Urine Bacteria <20 /HPF (<20); Urine Bilirubin NEGATIVE (Negative); Urine Blood Negative (Negative); Urine Clarity Turbid (Clear); Urine Color Yellow (Yellow); Urine Culture Reflex Order REFLEXED; Urine Glucose 4+ (Over) (Negative); Urine Ketones 2+ (Negative); Urine Microscopic Reflex YN ORDER UMIC; Urine Mucus Slight /HPF (None Seen); Urine Nitrite NEGATIVE (Negative); Urine Protein NEGATIVE (Negative); Urine RBC None Seen /HPF (None Seen); Urine Urobilinogen 2+ (Normal); Urine WBC 20-50 /HPF (<5); Urine Yeast (Budding) Trace /HPF (None Seen); Urine pH 5.5 (5.0-7.0)
[2024-06-15 06:07] LABS: Absolute Basophils 0.2 K/uL (0-0.5); Absolute Eosinophils 0.2 K/uL (0-0.5); Absolute Monocytes 1.3 K/uL (0.1-1.3); Absolute Neutrophil 15.5 K/uL (1.8-8.0); Basophils % 0.9 % (0-1.3); Eosinophils % 0.8 % (0-4.4); Hematocrit 36.9 % (39.6-49.0); Hemoglobin 12.5 g/dL (13.6-17.9); Lymphocytes % 5.4 % (15.3-44.8); MCH 30.3 pg (27.0-35.0); MCHC 33.8 g/dL (32.0-36.0); MCV 89.7 fL (80-100); MPV 8.6 fL (7.6-11.3); Neutrophils % 85.9 % (41.7-73.7); Platelets 307 thou/uL (152-406); RBC Red Blood Cell Count 4.12 M/uL (4.33-5.43); Red Cell Distribution Width 15.9 % (12.1-15.2)
[2024-06-15 06:15] LABS: Albumin 2.2 g/dL (3.4-5.0); Albumin/Globulin Ratio 0.5 (1.1-1.8); Anion Gap 7.9 mEq/L (5.0-15.0); Bilirubin Total 0.6 mg/dL (0.2-1.0); Globulin 4.5 g/dL (2.3-3.5); Potassium 3.9 mEq/L (3.5-5.1); Protein, Total 6.7 g/dL (6.4-8.2)
[2024-06-15 06:17] LABS: PT Prothrombin Time 16.9 SECONDS (9.4-12.5); Protime INR 1.53
[2024-06-15 07:45] LABS: Blood Morphology Comment NOT SEEN (NOT SEEN); Platelet Estimate ADEQ; Toxic Granulation 1+; White Blood Cell Scan OK (OK)
[2024-06-15] MEDS: carvediloL 12.5 MG TAB PO SCH (08:28)
[2024-06-15] MEDS: INSULIN REGULAR (HUMAN) 100 UNIT/ML SQ SCH (08:28)
[2024-06-15] MEDS: CEFTRIAXONE 1,000 MG in NA CHLORIDE 0.9% 50 ML IVPB SCH (08:29)
--- NOTE | 2024-06-15 08:29 | RAD REPORT ---
EXAM DESCRIPTION: CT - Femur Right Wo Con - 06/15/2024 7:54 am CLINICAL HISTORY: cellulitis Pain and swelling COMPARISON: No comparisons FINDINGS: Skin thickening is present medial right thigh with moderate inflammation deep to the skin present. There arm numerous loculated air and fluid collections present in the subcutaneous fat media l right thigh. The largest collection measures 8.5 x 4.5 cm. Additionally more superiorly an addition al collection measures 5.5 x 5.0 cm. These are multiloculated fluid and gas collections of varying si ze. No fracture or aggressive marrow pattern. IMPRESSION: Skin thickening with subcutaneous inflammation with multiple loculated fluid collections present medial superior right thigh. The adjacent skin is thickened. This is compatible with celluli tis with subcutaneous abscess formation. All CT scans are performed using dose optimization technique as appropriate and may include automated exposure control or mA/KV adjustment according to patient size.
[2024-06-15] MEDS ORDERED: ENOXAPARIN 40 MG/0.4 ML SQ SCH (09:00)
[2024-06-15] MEDS: VANCOMYCIN 2 GM in NA CHLORIDE 0.9% 500 ML IVPB SCH (11:42)
--- NOTE | 2024-06-15 11:55 | P.PN ---
Date of Service: 06/15/24 Subjective: No acute events overnight Complains of pain to right thigh area ROS: 10 point ROS as noted above, otherwise negative Physical exam GEN: Alert, oriented, NAD HEENT: Normal conjunctiva, sclera anicteric CV: Regular rate and rhythm, no edema Pulm: Nonlabored respirations on room air ABD: Soft, nontender, nondistended MSK: No joint tenderness Integumentary: Erythema, induration, fluctuant to right medial proximal thigh Neuro: Normal speech, normal affect Vitals reviewed Assessment: Sepsis secondary to right thigh cellulitis/abscess-present on admission Diabetes mellitus type [id number]-pfamqasqk Atrial fibrillation noncompliant with anticoagulation Hypertension Elevated D-dimer Plan: Sepsis secondary to right thigh cellulitis/abscess-present on admission CT 06/15 shows Skin thickening with subcutaneous inflammation with multiple loculated fluid collections present medial superior right thigh. The adjacent skin is thickened. This is compatible with cellulitis with subcutaneous abscess formation. Plan for I&D today with Dr. Aguayo Lactate less than 2 Blood cultures obtained at outside hospital-[facility], will need to follow-up Diabetes mellitus type 3qmk-[id number]-xceogpxra ACHS Accu-Chek, sliding scale insulin Atrial fibrillation noncompliant with anticoagulation Hypertension Has not been on home meds including anticoagulation for around 5 months now Elevated D-dimer Will check venous doppler to R/O DVT VTE: Therapeutic Lovenox if okay with surgery Code: full Dispo: 2 to 3 days Time Spent Managing Pts Care (In Minutes): 35
[2024-06-15] MEDS: SUCCINYLCHOLINE 20 MG/ML (10 ML) IV ONE (15:09)
[2024-06-15] MEDS ORDERED: propofoL 200 MG/20 ML VIAL IV ONE (15:13)
[2024-06-15] MEDS ORDERED: FENTANYL CITR 100 MCG/2 ML ONE (15:13)
[2024-06-15] MEDS ORDERED: MIDAZOLAM HCL 2 MG/2 ML INJ ONE (15:13)
--- NOTE | 2024-06-15 16:07 | P.BOP ---
Preoperative diagnosis: cellulitis, complex abscess right thigh Postoperative diagnosis: same Primary procedure: I&D with excisional deep subQ debridement debridement right thigh abscess/w Secondary procedure: [id number] Other procedure(s): Pulse lavage Estimated blood loss: <40cc Specimen: pus , devitalized tissue Findings: complex multiloculated abscess down to fascia and muscle Anesthesia: General Complications: None Drain(s): Other (lerlix roll) Transferred to: Recovery Room Condition: Good
[2024-06-15] MEDS ORDERED: MORPHINE 4 MG/ML SYR IV PRN (16:10)
[2024-06-15] MEDS: HYDROMORPHONE HCL 1 MG/ML INJ ONE (16:18)
--- NOTE | 2024-06-15 18:31 | CON ---
Date of Consultation: 06/15/2024 Reason For Service: Right thigh cellulitis and abscess. History Of Present Illness: This is a case of a 68-year-old patient with history of diabetes, atrial fibrillation, hypertension, transferred from [facility] due to a right thigh abscess. Surgical consult was obtained for drainage. The patient has history of AFib and diabetes. He says he has st opped taking his medications about 5 months ago. Allergies: NONE. Medications: At least the way he is supposed to take Eliquis, losartan, metformin, hydrochlorothiazi de, Coreg. Medical Problems: As above. Social History: He does not smoke. He does drink alcohol. Family History: Unremarkable. Review of Systems: No shortness of breath. No chest pain. The patient has a right thigh inner thigh swelling, tenderne ss, heavy erythema present. 10 points are otherwise unremarkable. Does not recall his colonoscopies . At least, he does not recall any melena or dysuria. Physical Examination: Vital Signs: Reviewed. General: The patient is awake, alert, in no distress. Oriented x3. HEENT: Pupils are equal reactive anicteric. Neck: Supple. Chest: Clear. Abdomen: Soft and depressible. Rectal: Deferred. Musculoskeletal: The patient has a right medial thigh area of fluctuance, tenderness, swelling, eryt liban consistent with cellulitis and abscess. Rectal: Deferred. Laboratory Data: WBC count of 18 with hemoglobin of 12.5, and platelets of 307. Potassium 3.9, gluc ose 289. INR is 1.53. CAT scan of the lower extremities: There is thickening and subcutaneous infl ammation with multiple loculated fluid in the medial superior right thigh. Assessment: This is a 68-year-old patient with multiple medical problems including obesity, diabetes , heart disease, not taking his medications. Shows in the ER with cellulitis and abscess of the righ t thigh. Medical doctors started working on him and they asked me to see if I can do the incision an d drainage. There are many risks of incision and drainage of right thigh abscess, fully explained wh ich include, but not limited to infection, bleeding, damage to adjacent structures, anesthesia compli cation, recurrence, myocardial infarction, and even . He also understands this may not relieve symptoms, he might need more than one surgical intervention. He also understands the importance of b eing compliant with treatment. His medications are important, diabetes control, also cleaning the ar ea with soap and water and he will require wound care. MATEO/MODL Voice ID: [id number] Report ID: [id number]
[2024-06-15] MEDS: HYDROCODONE/APAP 7.5/325 MG TAB PO PRN (20:25)
--- NOTE | 2024-06-15 23:22 | OP ---
Date of Procedure: 06/15/2024 Surgeon: Damon Aguayo MD Preoperative Diagnosis: Right thigh extensive cellulitis with a complex abscess. Postoperative Diagnosis: Right thigh extensive cellulitis with a complex abscess. Procedure: Incision and drainage with excisional deep subcutaneous debridement of right thigh cellul itis abscess about 25 x 25 x 3 cm with pulse lavage. Estimated Blood Loss: Less than 40 cc. Specimens: Devitalized tissue and pus culture. Findings: Complex multiloculated abscess down to fascia and muscle. Multiple incisions have to be m marcio to drain that large abscess, multiple levels of that. Anesthesia: General plus local. Indications: The patient was transferred from another institution with a large right thigh abscess c ellulitis of the entire thigh area. We noticed he has history of atrial fibrillation. He is suppose d to be taking medications. He is supposed to be taking also a glucose medication, where he says he has not took that in weeks and he does not look for any help, so he was admitted for obviously a medi carol control and also for incision and drainage and debridement of a large abscess on the right thigh. The benefits, alternatives, and risks fully explained to the patient which include, but not limited to infection, bleeding, damage to adjacent structures, anesthesia complication, recurrence, DE, and even . He also understands this may not relieve any symptoms. He might need more than one surg ical intervention. He understood and signed a consent. Description Of Procedure: The patient was brought to the operating room and placed in supine positio n. Anesthesia was achieved without complication. The right thigh was prepped and draped in usual st erile fashion. Local anesthesia was applied after a time-out, followed by sharp incisions. We made a sharp incision of the skin and found to be pus coming out. After we cleared that area, we noticed the patient has multiple loculations, will require multiple incisions in that thigh to be able to leni in the abscess. After all the loculations were explored opened, we proceeded to pulse lavage of the area until clean. Before that, we did cultures. Hemostasis was obtained and then we packed the area with wet-to-dry dressing. The patient tolerated the procedure well. The patient on his way to [facility] very in stable condition. HM/NARINDERL Voice ID: [id number] Report ID: [id number]
[2024-06-16 00:41] LABS: Sqamous Epithelial <5 /HPF (None Seen); Urine Bacteria 20-50 /HPF (<20); Urine Bilirubin NEGATIVE (Negative); Urine Blood Negative (Negative); Urine Clarity Extremely Turbid (Clear); Urine Color Yellow (Yellow); Urine Crystals Unidentified Few /HPF (None Seen); Urine Glucose 2+ (Negative); Urine Ketones NEGATIVE (Negative); Urine Microscopic Reflex YN ORDER UMIC; Urine Mucus Slight /HPF (None Seen); Urine Nitrite NEGATIVE (Negative); Urine Protein NEGATIVE (Negative); Urine Urobilinogen 2+ (Normal); Urine WBC Clump Occasional /HPF (None Seen); Urine pH 5.5 (5.0-7.0)
[2024-06-16 00:42] LABS: Urine Culture Reflex Order REFLEXED; Urine RBC None Seen /HPF (None Seen); Urine WBC 20-50 /HPF (<5)
[2024-06-16 05:42] LABS: Hematocrit 36.5 % (39.6-49.0); MCH 29.7 pg (27.0-35.0); MCHC 32.9 g/dL (32.0-36.0); MCV 90.3 fL (80-100); MPV 8.9 fL (7.6-11.3); Platelets 291 thou/uL (152-406); RBC Red Blood Cell Count 4.04 M/uL (4.33-5.43); Red Cell Distribution Width 15.9 % (12.1-15.2)
[2024-06-16 06:13] LABS: Anion Gap 10.5 mEq/L (5.0-15.0); Potassium 3.5 mEq/L (3.5-5.1)
[2024-06-16] MEDS: VANCOMYCIN 1.5 GM in NA CHLORIDE 0.9% 500 ML IVPB SCH (12:13)
[2024-06-16] MEDS: METFORMIN HCL 500 MG TAB PO SCH (16:51)
[2024-06-16] MEDS: APIXABAN 5 MG TABLET PO SCH (21:21)
[2024-06-17 06:08] LABS: Hematocrit 36.1 % (39.6-49.0); Hemoglobin 11.5 g/dL (13.6-17.9); MCH 28.8 pg (27.0-35.0); MCHC 31.9 g/dL (32.0-36.0); MCV 90.3 fL (80-100); MPV 8.9 fL (7.6-11.3); Platelets 295 thou/uL (152-406); RBC Red Blood Cell Count 3.99 M/uL (4.33-5.43); Red Cell Distribution Width 15.7 % (12.1-15.2)
--- NOTE | 2024-06-17 06:16 | P.PN ---
Date of Service: 06/16/24 Subjective: S/P I&D 06/15 Doing well post op No acute events overnight Will resume eliquis today ROS: 10 point ROS as noted above, otherwise negative Physical exam GEN: Alert, oriented, NAD HEENT: Normal conjunctiva, sclera anicteric CV: Regular rate and rhythm, no edema Pulm: Nonlabored respirations on room air ABD: Soft, nontender, nondistended MSK: No joint tenderness Integumentary: Erythema, induration, fluctuant to right medial proximal thigh Neuro: Normal speech, normal affect Vitals reviewed Assessment: Sepsis secondary to right thigh cellulitis/abscess-present on admission Diabetes mellitus type 2gkx-dmkyacu-bonunsvdl Atrial fibrillation noncompliant with anticoagulation Hypertension Elevated D-dimer Plan: Sepsis secondary to right thigh cellulitis/abscess-present on admission S/P I&D 06/15 CT 06/15 shows Skin thickening with subcutaneous inflammation with multiple loculated fluid collections present medial superior right thigh. The adjacent skin is thickened. This is compatible with cellulitis with subcutaneous abscess formation. S/P I&D with Dr. Aguayo 06/15 Called [facility] [place], blood cultures with no growth in 24 hours Await wound cultures obtained during surgery Continue ABX PT consult Will need at least HH, possibly SNF Diabetes mellitus type 0hbm-cqxnetz-zqoixfknz ACHS Accu-Chek, sliding scale insulin Atrial fibrillation noncompliant with anticoagulation Hypertension Has not been on home meds including anticoagulation for around 5 months now Resumed eliquis 06/16 after checking with surgery Elevated D-dimer Will check venous doppler to R/O DVT VTE: Eliquis Code: full Dispo: 2 to 3 days Time Spent Managing Pts Care (In Minutes): 35
[2024-06-17 06:19] LABS: Anion Gap 8.5 mEq/L (5.0-15.0); Potassium 3.5 mEq/L (3.5-5.1)
--- NOTE | 2024-06-17 10:02 | RAD REPORT ---
EXAM DESCRIPTION: US - Extrem Venous W Compress Huang - 06/17/2024 7:04 am CLINICAL HISTORY: Edema COMPARISON: None. TECHNIQUE: Real-time sonographic evaluation of the left lower extremity deep venous system was perfo rmed. FINDINGS: Normal compressibility, flow augmentation, phasic flow and spontaneous flow is identified in the left lower extremity deep venous system. No intraluminal filling defects seen. IMPRESSION: No DVT in the left lower extremity.
--- NOTE | 2024-06-17 11:15 | P.PN ---
Date of Service: 06/17/24 Subjective: S/P I&D 06/15 Doing well post op No acute events overnight ROS: 10 point ROS as noted above, otherwise negative Physical exam GEN: Alert, oriented, NAD HEENT: Normal conjunctiva, sclera anicteric CV: Regular rate and rhythm, no edema Pulm: Nonlabored respirations on room air ABD: Soft, nontender, nondistended MSK: No joint tenderness Integumentary: Erythema, induration, fluctuant to right medial proximal thigh Neuro: Normal speech, normal affect Vitals reviewed Assessment: Sepsis secondary to right thigh cellulitis/abscess-present on admission Diabetes mellitus type 3ozg-zbsdkll-ubqaiyiqg Atrial fibrillation noncompliant with anticoagulation Hypertension Elevated D-dimer Plan: Sepsis secondary to right thigh cellulitis/abscess-present on admission S/P I&D 06/15 CT 06/15 shows Skin thickening with subcutaneous inflammation with multiple loculated fluid collections present medial superior right thigh. The adjacent skin is thickened. This is compatible with cellulitis with subcutaneous abscess formation. S/P I&D with Dr. Aguayo 06/15 Called [facility] [place], blood cultures with no growth in 24 hours Await wound cultures obtained during surgery Continue ABX PT consult Will need HH/SN/PT at [place] daily wet to dry dressing changes per surgery Diabetes mellitus type 2gaf-rnjzjns-vwywwrass ACHS Accu-Chek, sliding scale insulin Atrial fibrillation noncompliant with anticoagulation Hypertension Has not been on home meds including anticoagulation for around 5 months now Resumed eliquis 06/16 after checking with surgery Elevated D-dimer Negative for DVT PHILLY LE VTE: Eliquis Code: full Dispo: 2 to 3 days Time Spent Managing Pts Care (In Minutes): 35
[2024-06-18 06:23] LABS: Hematocrit 37.9 % (39.6-49.0); Hemoglobin 12.3 g/dL (13.6-17.9); MCH 29.2 pg (27.0-35.0); MCHC 32.5 g/dL (32.0-36.0); MPV 8.9 fL (7.6-11.3); Platelets 289 thou/uL (152-406); RBC Red Blood Cell Count 4.21 M/uL (4.33-5.43); Red Cell Distribution Width 15.6 % (12.1-15.2)
[2024-06-18 06:41] LABS: Anion Gap 6.6 mEq/L (5.0-15.0); Potassium 3.6 mEq/L (3.5-5.1)
[2024-06-18] MEDS: VANCOMYCIN 1.75 GM in NA CHLORIDE 0.9% 500 ML IVPB SCH (09:09)
[2024-06-18] MEDS: CEFEPIME 2 GM in NA CHLORIDE 0.9% 100 ML IV SCH (09:09)
--- NOTE | 2024-06-18 13:04 | P.PN ---
Date of Service: 06/18/24 Subjective: S/P I&D 06/15 Doing well post op No acute events overnight ROS: 10 point ROS as noted above, otherwise negative Physical exam GEN: Alert, oriented, NAD HEENT: Normal conjunctiva, sclera anicteric CV: Regular rate and rhythm, no edema Pulm: Nonlabored respirations on room air ABD: Soft, nontender, nondistended MSK: No joint tenderness Integumentary: Erythema, induration, abscess to R prox thigh now open with packing in place Neuro: Normal speech, normal affect Vitals reviewed Assessment: Sepsis secondary to right thigh cellulitis/abscess-present on admission Diabetes mellitus type 5urd-nvfznnm-sjuqfjkzj Atrial fibrillation noncompliant with anticoagulation Hypertension Elevated D-dimer Plan: Sepsis secondary to right thigh cellulitis/abscess-present on admission S/P I&D 06/15 CT 06/15 shows Skin thickening with subcutaneous inflammation with multiple loculated fluid collections present medial superior right thigh. The adjacent skin is thickened. This is compatible with cellulitis with subcutaneous abscess formation. S/P I&D with Dr. Aguayo 06/15 Called [facility], blood cultures with no growth in 24 hours-checked again 06/18, still no growth Await wound cultures obtained during surgery Continue ABX PT consult Will need HH/SN/PT at [place] daily wet to dry dressing changes per surgery-wound repacked by Dr. Aguayo 06/17 Diabetes mellitus type 8lbs-pemosbx-crrniwbsh ACHS Accu-Chek, sliding scale insulin Will need refill on metformin at dc Atrial fibrillation noncompliant with anticoagulation Hypertension Has not been on home meds including anticoagulation for around 5 months now Resumed eliquis 06/16 after checking with surgery Will need prescritpion for BP meds, anticoagulation at [place] Elevated D-dimer Negative for DVT PHILLY LE VTE: Eliquis Code: full Dispo: 2 to 3 days Time Spent Managing Pts Care (In Minutes): 35
[2024-06-18 23:35] VITALS: BMI 44.9
[2024-06-19 05:59] LABS: Potassium 3.2 mEq/L (3.5-5.1)
[2024-06-19 06:05] LABS: Anion Gap 5.2 mEq/L (5.0-15.0)
[2024-06-19 06:14] LABS: Hematocrit 38.8 % (39.6-49.0); Hemoglobin 12.5 g/dL (13.6-17.9); MCH 29.1 pg (27.0-35.0); MCHC 32.3 g/dL (32.0-36.0); MCV 90.4 fL (80-100); MPV 8.9 fL (7.6-11.3); Platelets 305 thou/uL (152-406); RBC Red Blood Cell Count 4.29 M/uL (4.33-5.43); Red Cell Distribution Width 15.7 % (12.1-15.2)
[2024-06-19] MEDS: hydroCHLOROthiazide 25 MG TAB PO SCH (08:28)
[2024-06-19] MEDS: LOSARTAN POTASSIUM 50 MG TABLET PO SCH (08:28)
[2024-06-19] MEDS: INSULIN REGULAR (HUMAN) 100 UNIT/ML SQ SCH (16:26)
--- NOTE | 2024-06-19 17:17 | P.PN ---
Date of Service: 06/19/24 Subjective: Feeling well, c/o pain to right inner thigh at surgical site Reports feeling disappointed that he cannot do what he use to do No acute events overnight ROS: 10 point ROS as noted above, otherwise negative Physical exam GEN: Alert and oriented x3, NAD HEENT: Normal conjunctiva, sclera anicteric CV: AFib HR 91, S1 S2 present, no edema Pulm: Nonlabored respirations, bilaterally clear breath sounds, on room air ABD: Soft and begnin on palpation, nontender, distended (morbidly obese) MSK: No joint tenderness Integumentary: Erythema, induration, abscess to R prox inner thigh now open with packing in place Neuro: Normal speech, normal affect Vitals reviewed Assessment: Sepsis secondary to right thigh cellulitis/abscess-present on admission Diabetes mellitus type 8ckn-xhsdvum-lquszwipn Hyperglycemic Atrial fibrillation noncompliant with anticoagulation Hypertension Elevated D-dimer Morbidly obesity 2/2 sedentary lifestyle and increased calorie intake Plan: Sepsis secondary to right thigh cellulitis/abscess-present on admission S/P I&D 06/15 Leukocytosis -CT 06/15 shows Skin thickening with subcutaneous inflammation with multiple loculated fluid collections present medial superior right thigh. The adjacent skin is thickened. This is compatible with cellulitis with subcutaneous abscess formation. -S/P I&D with Dr. Aguayo 06/15 -Called [facility], blood cultures with no growth in 24 hours-checked again 06/18, still no growth -Await wound cultures obtained during surgery -WBC trend //26/10 -Continue ABX -PT consult -Will need HH/SN/PT at [place] -Daily wet to dry dressing changes per surgery-wound repacked by Dr. Aguayo 06/17 Diabetes mellitus type 7sjl-uixkktv-bnqvuclxm Hyperglycemic -ACHS Accu-Chek, sliding scale insulin -Semglee added tonight 06/19 -Will need refill on metformin at [place] Atrial fibrillation noncompliant with anticoagulation Hypertension -Has not been on home meds including anticoagulation for around 5 months now -Resumed eliquis 06/16 after checking with surgery -Will need prescritpion for BP meds, anticoagulation at [place] Elevated D-dimer -Negative for DVT PHILLY LE Morbidly obesity 2/2 sedentary lifestyle and increased calorie intake -Nutritional consult VTE: Eliquis Code: full Dispo: 2 to 3 days
--- NOTE | 2024-06-19 17:56 | CON ---
History Of Present Illness: This is a 68-year-old male. I was consulted for right thigh abscess, wh ich has been debrided by surgical team. The patient has significant past medical history of diabetes mellitus, atrial fibrillation, hypertension, previous tobacco use, coming in with swelling in the ri t thigh region. Denies any headache, nausea, vomiting, chest pain, abdominal pain, constipation, d iarrhea, and CT of the right lower extremity showed skin thickening and subcutaneous inflammation wit h multiple loculated fluid collection present medial superior right thigh. Cellulitis with subcutane ous abscess formation was noted. The patient had surgical debridement done by surgical team on Augus t 2 and currently being treated with cefepime and vancomycin. Past Medical History: As per HPI. Social History: Nonsmoker, nondrinker. Family History: Noncontributory. Medications: Vancomycin, cefepime. See MAR for other medications. Allergies: NO KNOWN DRUG ALLERGIES. Review of Systems: A 10-point review was performed. Physical Examination: General: This is a 68-year-old male, lying in bed, not in any acute cardiopulmonary distress. Vital Signs: Temperature 97, pulse 91, respirations 20, blood pressure 158/92. HEENT: Unremarkable. Neck: Supple. Lungs: Basal crackles. Heart: S1, S2. Regular. Abdomen: Soft, nontender. Bowel sounds present. Extremities: Right thigh swelling noted. Laboratory Data: Shows WBC 12, hemoglobin 12.5, platelets 305. Chemistry shows BUN of 7, creatinine 0.65. Albumin level of 2.2. Assessment And Plan: A 68-year-old male with significant history of morbid obesity and diabetes mitra itus, coming in with right thigh abscess, status post debridement. Recommend to continue antibiotic for 2 weeks, can be switched to oral Augmentin prior to discharge. Continue current antibiotic pendi ng culture results. Wound cultures are growing Staphylococcus capitis, most likely a skin contaminan t. Leukocytosis, moderate protein-calorie malnourishment, anemia of chronic disease. We will follow the patient as needed. Thank you for consult. We will follow the patient as needed. NF/MODL Voice ID: [id number] Report ID: [id number]
[2024-06-19] MEDS: INSULIN GLARGINE 100 UNIT/ML SQ SCH (20:32)
[2024-06-20 04:54] LABS: Hematocrit 39.4 % (39.6-49.0); Hemoglobin 12.7 g/dL (13.6-17.9); MCH 28.9 pg (27.0-35.0); MCHC 32.3 g/dL (32.0-36.0); MCV 89.5 fL (80-100); MPV 8.3 fL (7.6-11.3); Platelets 293 thou/uL (152-406); RBC Red Blood Cell Count 4.41 M/uL (4.33-5.43); Red Cell Distribution Width 15.7 % (12.1-15.2)
[2024-06-20 05:54] VITALS: O2SAT 97
[2024-06-20] MEDS: POTASSIUM 25 MEQ EFFERV TAB PO SCH (08:19)
--- NOTE | 2024-06-20 19:23 | P.PN ---
Date of Service: 06/20/24 Subjective: Awake and conversing well Reports shortness of breath when ambulating, this is d/t his Atrial fibrillation Packing to right inner thigh draining, Leo refused linen change on his bed ROS: 10 point ROS as noted above, otherwise negative Physical exam GEN: AAO x3, NAD, conversing well HEENT: Normal conjunctiva, sclera anicteric CV: AFib HR 84, S1 S2 present, no edema Pulm: Symmetrical chest wall movement, bilaterally clear breath sounds, on room air ABD: Soft and begnin on palpation, NT, distended (morbidly obese) MSK: No joint tenderness Integumentary: Erythema, induration, abscess to R prox inner thigh now open with packing in place, drainage from packing Neuro: Normal speech, normal affect Vitals reviewed Assessment: Sepsis secondary to right thigh cellulitis/abscess-present on admission Diabetes mellitus type 7fyq-vpyneyi-wxzugmmek Hyperglycemic Atrial fibrillation noncompliant with anticoagulation Hypertension Elevated D-dimer Morbidly obesity 2/2 sedentary lifestyle and increased calorie intake Plan: Sepsis secondary to right thigh cellulitis/abscess-present on admission S/P I&D 06/15 Leukocytosis -CT 06/15 shows Skin thickening with subcutaneous inflammation with multiple loculated fluid collections present medial superior right thigh. The adjacent skin is thickened. This is compatible with cellulitis with subcutaneous abscess formation. -S/P I&D with Dr. Aguayo 06/15 -Called [facility], blood cultures with no growth in 24 hours-checked again 06/18, still no growth -Await wound cultures obtained during surgery -WBC trend //26/10 -Continue ABX -PT consult -Will need HH/SN/PT at [place] -Daily wet to dry dressing changes per surgery-wound repacked by Dr. Aguayo 06/17 Diabetes mellitus type 5iet-myxzklh-jeefrdmuf Hyperglycemic -ACHS Accu-Chek, sliding scale insulin -Semglee added tonight 06/19 -Will need refill on metformin at [place] Atrial fibrillation noncompliant with anticoagulation Hypertension -Has not been on home meds including anticoagulation for around 5 months now -Resumed eliquis 06/16 after checking with surgery -Will need prescritpion for BP meds, anticoagulation at [place] Elevated D-dimer -Negative for DVT PHILLY LE Morbidly obesity 2/2 sedentary lifestyle and increased calorie intake -Nutritional consult- education provided for diabetes and weight loss meal plan VTE: Charanis Code: full Dispo: Awaiting placement, [facility] pending
[2024-06-21 07:01] LABS: Anion Gap 10.3 mEq/L (5.0-15.0); Magnesium 1.8 mg/dL (1.6-2.4); Phosphorus 3.2 mg/dL (2.5-4.9); Potassium 3.3 mEq/L (3.5-5.1)
--- NOTE | 2024-06-21 09:59 | P.DS ---
Admission Date: 06/14/24 Discharge Date: 06/21/24 Disposition: TRANSFER TO SNF - REHAB Discharge Condition: GOOD Reason for Admission: thigh abscess right Brief History of Present Illness: Diagnosis Sepsis secondary to right thigh cellulitis/abscess-present on admission S/P incision and drainage to right inner thigh Diabetes mellitus type [id number] Hyperglycemic Atrial fibrillation noncompliant with anticoagulation Hypertension Elevated D-dimer Morbidly obesity 2/2 sedentary lifestyle and increased calorie intake HPI 06/14/24 Leo Griffin is a 68-year-old male with history of diabetes, atrial fibrillation, hypertension, previous tobacco use presents from outside hospital with what he describes as a 5 to 7-day progressive swelling of his right inner thigh. The patient does report that there was some discharge. He does report having pain. states that in the last 5 months he has not taking his medications. He reports that his primary care . He reports that he normally takes metformin. He is also on Eliquis for atrial fibrillation which she has not taken for several months. He does have history of coronary artery disease. And does report that he does not have any chest pain or difficulty breathing or fevers currently outside hospital contacted general surgeon who recommended transfer for evaluation Ultrasound right medial thigh done which showed 6 x 2 x 8 cm phlegmon and a second area which measured 1.5 x 1.7 x 2.5 cm heterogeneous hypechoic area Outside hospital reports that they collected blood cultures Hospital Course: Leo Griffin is a pleasant 68 year old male with a past medical history significant for diabetes, atrial fibrillation, hypertension, previous tobacco who was admitted to the [facility] on 06/14/24 for swelling of his right inner thigh. Leo presented to the ED with chief complaint of his right inner thigh swelling. He was found to be septic secondary to right thigh cellulitis/abscess noted on the right lower extremity CT. Venous doppler showing no DVT, general surgery was consulted and incision and drainage performed on 06/15. Specimen culture showing staphylococcus Capitis, infectious disease consulted and recommended to continue on vancomycin while inpatient. Dr. Segovia managed the wound with packing changes daily. Leo had some drainage from the wound daily during the dressing changes. Continued dressing change daily will continue as outpatient. Physical therapy consulted and recommended continued physical therapy for increased strengthening and stability while ambulating. Nutrition consulted for education concerning his morbid obesity, diabetic diet, and wound healing. He was hyperglycemic during this admission, he stated his blood sugar has been lower than it usually is at home. He has tolerated PO diet, urinating without difficulty, no new complaints, and hemodynamically stable for discharge. On 06/21/24, Leo was seen on morning rounds and deemed medically stable for discharge to [facility]. Leo was discharged with instructions to schedule follow-up appointments with PCP and Dr. Aguayo. Leo was provided prescriptions for Bactrim. Physical exam GEN: Awake, alert, and oriented x3, No acute distress, conversing well HEENT: Normal conjunctiva, sclera anicteric CV: AFib HR 92, S1 S2 present, no murmur noted Pulm: normal air movement, bilaterally clear breath sounds, on room air ABD: Soft on palpation, Nontender, distended (morbidly obese) MSK: No joint tenderness Integumentary: Erythema, induration, abscess to R prox inner thigh now open with packing in place, drainage from packing Vital Signs/Physical Exam: Temp Pulse Resp BP Pulse Ox 97.7 F 92 H 20 176/97 H 94 06/21/24 08:00 06/21/24 08:00 06/21/24 08:00 06/21/24 08:00 06/21/24 08:00 Laboratory Data at Discharge: WBC 11.60 thou/uL (4.3-10.9) H 06/20/24 04:36 Hgb 12.7 g/dL (13.6-17.9) L 06/20/24 04:36 Hct 39.4 % (39.6-49.0) L 06/20/24 04:36 Plt Count 293 thou/uL (152-406) 06/20/24 04:36 PT 16.9 SECONDS (9.4-12.5) H 06/15/24 05:45 INR 1.53 06/15/24 05:45 Sodium 134 mEq/L (136-145) L 06/21/24 06:25 Potassium 3.3 mEq/L (3.5-5.1) L 06/21/24 06:25 BUN 11 mg/dL (7-18) 06/21/24 06:25 Creatinine 0.67 mg/dL (0.70-1.30) L 06/21/24 06:25 Glucose 218 mg/dL (74-106) H 06/21/24 06:25 Phosphorus 3.2 mg/dL (2.5-4.9) 06/21/24 06:25 Magnesium 1.8 mg/dL (1.6-2.4) 06/21/24 06:25 Total Bilirubin 0.6 mg/dL (0.2-1.0) 06/15/24 05:45 AST 17 U/L (15-37) 06/15/24 05:45 ALT 31 U/L (16-61) 06/15/24 05:45 Alkaline Phosphatase 150 U/L (45-117) H 06/15/24 05:45 Home Medications: carvediloL [Coreg*] 25 mg PO BID 03/19/19 Apixaban [Eliquis *] 2.5 mg PO BID 06/14/24 Losartan Potassium 100 mg PO DAILY 06/14/24 Metformin HCl 500 mg PO BID 06/14/24 hydroCHLOROthiazide [Hydrochlorothiazide] 25 mg PO DAILY 06/14/24 Apixaban [Eliquis] 5 mg PO BID 06/21/24 Ciprofloxacin HCl [Cipro 500 MG Tablet] 500 mg PO BID 8 Days #16 tab 06/21/24 Smz./Tmp. [Bactrim Ds 800 MG/160 MG] 1 tab PO BID #20 tab 06/21/24 New Medications: Smz./Tmp. [Bactrim Ds 800 MG/160 MG] 1 tab PO BID #20 tab Ciprofloxacin HCl [Cipro 500 MG Tablet] 500 mg PO BID 8 Days #16 tab Physician Discharge Instructions: Leo Griffin was treated for an abscess to right inner thigh, Surgery was on 06/15. Wound care: wet to dry to thigh wound daily. Complete antibiotic course with Ciprofloxacin twice daily for 8 days. Continue to work with physical therapy to regain strength. 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 1. Please call and schedule a follow-up appointment with your PCP in 3-5 days -Address high glucose during this admission, may need to change medications - Please follow-up with your PCP for medication refills/adjustments 2. Please call and schedule a follow-up appointment with [text] in 3-5 days 3. Continue diabetic diet 4. activity restrictions, fall precautions, work with Physical therapy 5. Return to the ED if symptoms worsen New medications Ciprofloxacin 500 mg p.o. twice daily x 8 days Wound care: wet to dry to thigh wound daily Diet: ADA Activity: Fall precautions Followup: Chris Putnam MD [Primary Care Provider] - 1-2 Weeks Damon Aguayo MD [ACTIVE - CAN ADMIT] - 1-2 Weeks
[2024-06-21] MEDS ORDERED: CIPROFLOXACIN HCL 500 MG TAB PO SCH ×2 (11:00→21:00)
[2024-06-21 11:16] LABS: Absolute Basophils 0.1 K/uL (0-0.5); Absolute Eosinophils 0.3 K/uL (0-0.5); Absolute Lymphocytes (CBC) 1.2 K/uL (0.7-4.9); Absolute Monocytes 1.1 K/uL (0.1-1.3); Absolute Neutrophil 9.1 K/uL (1.8-8.0); Eosinophils % 2.8 % (0-4.4); Hematocrit 40.4 % (39.6-49.0); Hemoglobin 13.1 g/dL (13.6-17.9); MCHC 32.4 g/dL (32.0-36.0); MCV 89.6 fL (80-100); MPV 8.8 fL (7.6-11.3); Monocytes % 9.3 % (3.3-12.3); Neutrophils % 76.9 % (41.7-73.7); Platelets 336 thou/uL (152-406); Red Cell Distribution Width 15.7 % (12.1-15.2)
[2024-06-21 16:08] VITALS: BP 142/77; TEMP 97.4
== END 2024-06-21 17:06 | DRG 854 ==
LOC: 2ND 22:48
PROVIDERS: ADMIT Internal Medicine; ATTEND Internal Medicine
PROC: 0JBL0ZZ Excision of Right Upper Leg Subcutaneous Tissue and Fascia, Open Approach (ICD-10-PCS; principal; 2024-06-15 14:45)
DX: A41.1 Sepsis due to other specified staphylococcus (principal); E44.0 Moderate protein-calorie malnutrition; L02.415 Cutaneous abscess of right lower limb; L03.115 Cellulitis of right lower limb; Z68.42 Body mass index [BMI] 45.0-49.9, adult; E66.01 Morbid (severe) obesity due to excess calories; I48.91 Unspecified atrial fibrillation; E11.65 Type 2 diabetes mellitus with hyperglycemia; I10 Essential (primary) hypertension; D63.8 Anemia in other chronic diseases classified elsewhere; I25.10 Atherosclerotic heart disease of native coronary artery without angina pectoris; Z79.01 Long term (current) use of anticoagulants; Z79.84 Long term (current) use of oral hypoglycemic drugs; Z86.73 Personal history of transient ischemic attack (TIA), and cerebral infarction without residual deficits; Z79.899 Other long term (current) drug therapy; Z91.148 Patient's other noncompliance with medication regimen for other reason
CPT/HCPCS: 36415; 73700; 80048; 80053; 80202; 81001; 82947; 83605; 83735; 84100; 85025; 85027; 85610; 87070; 87075; 87077; 87086; 87088; 87186; 87205; 88304; 93970; 94010; 97161; 97530; J0692; J0696; J1170; J2250; J2704; J3010; J7030; J7040